=== PATIENT | female | born 1950 | race Caucasian/White ===

== ENCOUNTER 2022-06-28 18:02 | Emergency (ER) | payer MEDICARE, SELFPAY ==
--- NOTE | 2022-06-28 18:04 | ED.BACK ---
HPI - Back Pain/Injury General Chief Complaint: Back Pain/Injury Stated Complaint: fall; lower back pain Time Seen by Provider: 06/28/22 18:19 Source: patient and RN notes reviewed Mode of arrival: ambulatory Limitations: no limitations History of Present Illness HPI Narrative: 71-year-old female with history of traumatic brain injury, cerebral aneurysm, dystonia presents with concern for recent fall causing low back pain. She reports she has been more dizzy lately, she has been removing herself from some of her medications including her blood pressure medication. She reports today she felt dizzy and fell. Reports she was unable to be coordinated enough to get herself off the ground for about 45 minutes. She eventually was able to get herself up off the ground. She did not hit her head. She reports she is having low back pain that she relates to her fall. She denies any weakness in any extremity, loss of bowel or bladder function, perianal anesthesia. She reports depression but denies suicidal ideations. MD elicited complaint: fall Related Data Home Medications Medication Instructions Recorded Confirmed albuterol sulfate 2.5 mg/3 mL 2.5 mg inhalation Q6H PRN 05/24/22 (0.083 %) solution for nebulization shortness of breath or wheezing bupropion HCl 150 mg tablet,12 hr 150 mg PO Q12H 05/24/22 06/28/22 sustained-release clonazepam 0.5 mg tablet 0.25 mg PO HS 05/24/22 06/28/22 ergocalciferol (vitamin D2) 1,250 1,250 mcg PO DAILY 05/24/22 06/28/22 mcg (50,000 unit) capsule escitalopram oxalate 20 mg tablet 20 mg PO DAILY 05/24/22 06/28/22 gabapentin 300 mg capsule 300 mg PO DAILY 05/24/22 06/28/22 venlafaxine 37.5 mg 37.5 mg PO DAILY 05/24/22 06/28/22 capsule,extended release 24 hr Allergies Allergy/AdvReac Type Severity Reaction Status Date / Time amoxicillin AdvReac Severe Hives Verified 06/28/22 18:19 Penicillins AdvReac Severe Hives Verified 06/28/22 18:19 Review of Systems Review of Systems: CONSTITUTIONAL: Denies malaise, chills, sweats, or fever. CARDIOVASCULAR: Denies chest pain, palpitations, or edema. RESPIRATORY: Denies cough or dyspnea. GASTROINTESTINAL: Denies abdominal pain, nausea, vomiting, diarrhea, loss of bowel function GENITOURINARY: Denies dysuria, hematuria, frequency, loss of bladder function. SKIN: Denies rash or itching. MUSCULOSKELETAL: Reports mid low back pain NEUROLOGIC: Denies numbness, weakness, or headache. Reports dystonia, dizziness PSYCH: Reports depression All systems reviewed & are unremarkable except as noted in HPI and below PMFSH Past Medical History Medical History (Updated 06/28/22 @ 18:48 by Karen Daigle NP) H/O vaginal delivery Surgical History Surgical History (Updated 05/24/22 @ 09:52 by Victorino Meneses MD) History of left-sided carotid endarterectomy S/P rotator cuff repair Social History Social History (Updated 05/24/22 @ 11:58 by Victorino Meneses MD) Social History: , 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 Smoking cigarettes per day: 15.0 Years smoked: 60 Smoking pack-years: 45.00 Smoking status: Current every day smoker Tobacco type: cigarettes Additional smoking assessment comments: refuses to quit Alcohol intake: current Alcohol use details: vodka 1 to 2 x a year Substance use: never Lack of Transportation: No Lack of Food: Never True Current Housing: I Have Housing Concerned About Future Housing: YES Education: Master's Degree or Higher Living arrangements: with family Occupation/Education: retired Gender identity (if verbalized by the patient): Female Comments At time of signature, agree with nursing past medical, surgical, social and family history. There is no relevant family history pertinent to the presenting complaint Exam Narrative: GENERAL: Nontoxic appearing and in no acute distress. HEAD: Normocephalic, atraumatic. EYES: PERRLA and EOMI. NECK: Supple. No lymp
[2022-06-28 18:17] VITALS: BP 139/71; PULSE 118; RESP 16; TEMP 36.2; O2SAT 95
--- NOTE | 2022-06-28 19:02 | PC.NURSE ---
0 pt has list of medications that she should be taking but reports that she has not been taking them as prescribed.
== END 2022-06-28 18:54 | disposition home or self-care (01) ==
PROVIDERS: Emergency Provider Nurse Practitioner; PCP Family Medicine
DX: M54.50 Low back pain, unspecified (principal); W19.XXXA Unspecified fall, initial encounter; F17.210 Nicotine dependence, cigarettes, uncomplicated; G24.9 Dystonia, unspecified; Z87.820 Personal history of traumatic brain injury
CPT/HCPCS: 99213; G0463

== ENCOUNTER 2022-08-08 20:49 | Emergency (ER) | payer MEDICARE, SELFPAY ==
[2022-08-08 21:05] VITALS: BP 123/87; PULSE 110; RESP 20; TEMP 36.4; O2SAT 94
--- NOTE | 2022-08-08 21:12 | ECG_ITS ---
Measurements Intervals [place] Rate: 116 P: 76 WA: 129 QRS: 34 QRSD: 88 T: 55 QT: 313 QTc: 435 Interpretive Statements SINUS TACHYCARDIA INCOMPLETE RIGHT BUNDLE BRANCH BLOCK BASELINE ARTIFACT- I, II, III, AVR, AVL, V1 ABNORMAL ECG NO PREVIOUS ECG AVAILABLE FOR COMPARISON Electronically Signed On 08-09-2022 6:25:18 CDT by Silvio Harrison D.O.
== END 2022-08-09 01:20 | disposition left against medical advice (07) ==
LOC: ANHED 08-09 01:02
PROVIDERS: Emergency Provider Preventive Medicine Aerospace Medicine; PCP Family Medicine
DX: R07.9 Chest pain, unspecified (principal)
CPT/HCPCS: 93005; 99199

== ENCOUNTER 2022-10-18 16:36 | Inpatient (IN) | payer MEDICARE, SELFPAY ==
[2022-10-18] VITALS (53 sets, daily range): BP systolic 56–158; BP diastolic 27–122; PULSE 53–76; RESP 12–23; TEMP 34–36.8; O2SAT 67–100; BMI 24.0
--- NOTE | ~2022-10-18 | CT_ITS ---
EXAMINATION: CT cervical spine wo con DATE: 10/18/2022 17:45 INDICATION: Fall. Unresponsive. TECHNIQUE: Computed tomography (CT) of the cervical spine was performed without intravenous contrast. Automated exposure control and iterative reconstruction technique were employed. The dose-length pro duct was 229.74 mGy-cm. COMPARISON: None FINDINGS: Mild motion artifact at the level of C1 and C2. Mild cervicothoracic levocurvature. Straightening of the normal cervical lordosis. Vertebral body heights are normal. No fracture. Moderate to severe disc height loss at C4-C5 and C5-C6, moderate disc height loss at C6-C7 and mild disc height loss at C7-T 1 and the visualized upper thoracic levels. Mild disc bulges resulting in mild central canal stenosis at C4-C5 and C5-C6. Severe uncovertebral osteoarthritis on the right at C4-C5 through C6-C7 and on t he left at C4-C5 and C6-C7 contributing to mild neural foraminal stenosis at these levels. Additional multilevel mild cervical uncovertebral and facet osteoarthritis without significant neural foraminal stenosis. Multinodular goiter. Atherosclerotic calcifications at the right carotid bulb with stentin g at the proximal left internal carotid artery. There is also stenting of the basilar artery. Emphyse ma in the visualized upper lungs. There are also calcified nodules at the right apex and at the super ior segment of the left lower lobe which along with calcified right hilar and mediastinal lymph nodes are consistent with old granulomatous disease. IMPRESSION: 1. Part to severe cervical spondylosis. No acute osseous abnormality. 2. Mild emphysema. Reviewed, dictated and finalized at location A.
--- NOTE | ~2022-10-18 | XR_ITS ---
Portable chest x-ray Comparison: 10/21/2022 Clinical History: Pulmonary edema Findings: NG tube present, unchanged from prior exam, presumably contained within a moderate to large hiatal hernia. [id number] right pleural effusion and probable small left pleural effusion pre sent. Mild to moderate pulmonary edema pattern present. Cardiomediastinal silhouette is stable. Bone s and soft tissues are unremarkable. Impression: [id number] pulmonary edema pattern with bilateral pleural effusions, right greater than left, a nd probable bibasilar atelectasis. NG tube present, presumably contained within a moderate to large hiatal hernia. Reviewed, dictated and finalized at location . Impression: [id number] pulmonary edema pattern with bilateral pleural effusions, righ t greater than left, and probable bibasilar atelectasis. NG tube present, presumably contained within a moderate to large hiatal hernia.
--- NOTE | ~2022-10-18 | XR_ITS ---
EXAMINATION: XR abdomen NG/feed tube rechec DATE: 10/19/2022 20:25 INDICATION: Nasogastric tube recheck TECHNIQUE: A supine view of the abdomen and lower chest was obtained for evaluation of feeding tube placement. COMPARISON: 10/18/2022 FINDINGS: Again seen is a large hiatal hernia with no change in position of the nasogastric tube with tip in pr oximal side port in the intrathoracic portion of the stomach. New right perihilar airspace opacities. Heart size is normal. Calcified nodule at the right costophrenic angle consistent with old granuloma tous disease. IMPRESSION: 1. Large hiatal hernia with unchanged nasogastric tube tip and proximal side port in the intrathoraci c portion of the stomach. 2. New opacities in the right mid and lower lung zones which could represent pneumonia, aspiration or asymmetric pulmonary edema. Reviewed, dictated and finalized at location A. IMPRESSION: 1. Large hiatal hernia with unchanged nasogastric tube tip and proximal side po rt in the intrathoracic portion of the stomach. 2. New opacities in the right mid and lower lung zones which could represent pn eumonia, aspiration or asymmetric pulmonary edema.
--- NOTE | ~2022-10-18 | XR_ITS ---
CORRECTED REPORT exam description change [facility] [place] [place]19/2022 This report was recreated on 10/19/2022. Original report was EXAMINATION: XR abdomen NG/feed tube insert DATE: 10/18/2022 21:19 INDICATION: Nasogastric tube placement TECHNIQUE: A supine view of the abdomen and lower chest was obtained for evaluation of feeding tube placement. COMPARISON: None. FINDINGS: Large hiatal hernia with nasogastric tube tip in proximal side port within the intrathoracic portion of the stomach. A few scattered bilateral calcified pulmonary nodules and calcite mediastinal lymph nodes consistent with old granulomatous disease. Heart size is normal. IMPRESSION: 1. Large hiatal hernia with nasogastric tube tip in proximal side port in the intrathoracic portion of the stomach. Reviewed, dictated and finalized at location A. MTDD IMPRESSION: 1. Large hiatal hernia with nasogastric tube tip in proximal side port in the i ntrathoracic portion of the stomach.
--- NOTE | ~2022-10-18 | XR_ITS ---
EXAMINATION: XR chest 1V portable DATE: 10/19/2022 20:24 INDICATION: Dyspnea TECHNIQUE: frontal view of the chest was obtained. COMPARISON: Chest radiograph dated 10/18/2022 FINDINGS: Mild hyperexpansion of lungs consistent with emphysema which is better appreciated on prior CT. New a irspace opacities in the right mid and lower lung zones. No pleural effusion or pneumothorax. A few b ilateral calcified pulmonary nodules consistent with old granulomatous disease. Heart size is normal. Large hiatal hernia . Nasogastric tube with tip and proximal side port within the intrathoracic port ion of the stomach. IMPRESSION: 1. Emphysema with new airspace opacities in the right mid and lower lung zones which could represent pneumonia, aspiration or asymmetric pulmonary edema. 2. Large sliding-type hiatal hernia with nasogastric tube tip and proximal side port in the intrathor acic portion of the stomach. Reviewed, dictated and finalized at location A. IMPRESSION: 1. Emphysema with new airspace opacities in the right mid and lower lung zones which could represent pneumonia, aspiration or asymmetric pulmonary edema. 2. Large sliding-type hiatal hernia with nasogastric tube tip and proximal side port in the intrathoracic portion of the stomach.
--- NOTE | ~2022-10-18 | XR_ITS ---
EXAMINATION: XR chest 1V portable DATE: 10/18/2022 17:23 INDICATION: Altered mental status. TECHNIQUE: frontal view of the chest was obtained. COMPARISON: None FINDINGS: Mild elevation the left hemidiaphragm. Calcified nodules at the right costophrenic angle and bilatera l apices along with calcified mediastinal lymph nodes consistent with old granulomatous disease. No o ther airspace opacities, pulmonary edema, pleural effusion or pneumothorax. Borderline heart size acc ounting for AP technique. Large retrocardiac mass projecting over the left side of the thoracic spine and right side of the heart with location and orientation suggesting a moderate-sized hiatal hernia. IMPRESSION: 1. Elevation the left hemidiaphragm. No acute cardiopulmonary disease. 2. Borderline heart size. 3. Retrocardiac masslike opacity most likely moderate-sized hiatal hernia. Aortic aneurysm or other m ediastinal mass considered less likely. If prior outside imaging is unavailable for comparison could consider follow-up chest CT for further evaluation. Reviewed, dictated and finalized at location A. IMPRESSION: 1. Elevation the left hemidiaphragm. No acute cardiopulmonary disease. 2. Borderline heart size. 3. Retrocardiac masslike opacity most likely moderate-sized hiatal hernia. Aort ic aneurysm or other mediastinal mass considered less likely. If prior outside imaging is unavailable for comparison could consider follow-up chest CT for fur ther evaluation.
--- NOTE | ~2022-10-18 | XR_ITS ---
XR abdomen NG/feed tube insert DATE: 10/20/2022 11:13 INDICATION: NG tube Insertion TECHNIQUE: Portable AP views COMPARISON: 10/19/2022 portal KUB for NG tube position FINDINGS: The NG tube makes a coil in the mouth. The NG tube distal tip is situated within the large hiatal hernia. IMPRESSION: NG tube in hiatal hernia; tube is coiled in the mouth. Reviewed, dictated and finalized at Location A. Reviewed, dictated and finalized at location A.
--- NOTE | ~2022-10-18 | CT_ITS ---
EXAMINATION: CTA chest PE protocol DATE: 10/18/2022 19:46 INDICATION: Pulmonary embolism TECHNIQUE: Computed tomography (CT) pulmonary angiogram of the chest was performed with 100 mL Omnipa que-350 intravenous contrast. Additional 3D reconstructions utilizing coronal maximum intensity proje ction (MIP) were performed. Automated exposure control and iterative reconstruction technique were em ployed. The dose-length product was 399.22 mGy-cm. COMPARISON: None FINDINGS: Excellent contrast opacification of the pulmonary arteries. There is mild streak artifact from dense contrast in the superior vena cava and right atrium. Mild scattered respiratory motion which does not significantly limit evaluation. No pulmonary embolism. Enlargement of the central pulmonary arteries consistent with pulmonary arterial hypertension. Mild emphysema. Multiple scattered calcified pulmon maryse nodules along with calcified mediastinal lymph nodes and a few splenic calcifications, all consis tent with old granulomatous disease. There is compressive atelectasis at the medial aspect of both lo wer lobes along side a large sliding-type hiatal hernia. There are some residual versus urethral flui d in the mid to distal esophagus. No pneumonia, pulmonary edema, pleural effusion or pneumothorax. Minh rderline heart size with mild left ventricular enlargement. Small amount scattered atherosclerotic co ronary artery calcification. No pericardial effusion. Thoracic aorta is normal in caliber. There are few diverticula at the visualized colon without adjacent from trace stranding to suggest diverticulit is. Moderate thoracic spondylosis. IMPRESSION: 1. Enlargement of the central pulmonary arteries consistent with pulmonary arterial hypertension. No pulmonary embolism. 2. Borderline heart size with mild left ventricular enlargement. 3. Large sliding-type hiatal hernia with some residual versus refluxed fluid in the more proximal eso phagus. Reviewed, dictated and finalized at location A. IMPRESSION: 1. Enlargement of the central pulmonary arteries consistent with pulmonary jeanine rial hypertension. No pulmonary embolism. 2. Borderline heart size with mild left ventricular enlargement. 3. Large sliding-type hiatal hernia with some residual versus refluxed fluid in the more proximal esophagus.
--- NOTE | ~2022-10-18 | XR_ITS ---
EXAMINATION: XR abdomen NG/feed tube rechec DATE: 10/19/2022 22:48 INDICATION: Nasogastric tube repositioning. TECHNIQUE: A supine view of the abdomen and lower chest was obtained for evaluation of feeding tube placement. COMPARISON: 10/27/2022 at 8:18 PM FINDINGS: The nasogastric tube has been advanced but remains positioned within the intrathoracic portion of the stomach with a large hiatal hernia. Persistent opacities in the right mid and lower lung zone. Calci fied nodule at the right lung base and in the left upper lung zone consistent with old granulomatous disease. Heart size is normal. IMPRESSION: 1. Large hiatal hernia with advancement of the nasogastric tube but which remains within the intratho racic portion of the stomach. 2. Opacities in the right mid and lower lung zone which could represent pneumonia, aspiration or asym metric pulmonary edema. Reviewed, dictated and finalized at location A. IMPRESSION: 1. Large hiatal hernia with advancement of the nasogastric tube but which remai ns within the intrathoracic portion of the stomach. 2. Opacities in the right mid and lower lung zone which could represent pneumon ia, aspiration or asymmetric pulmonary edema.
--- NOTE | ~2022-10-18 | XR_ITS ---
XR chest 1V portable DATE: 10/20/2022 07:53 INDICATION: Dyspnea, pulmonary infiltrates TECHNIQUE: Portable AP chest on 11/06/2022 at 0732 hours COMPARISON: 10/19/2022 portable AP chest FINDINGS: Again noted is a nasogastric tube in a large hiatal hernia. Heart size is borderline. Is aortic calcification and mild tortuosity. There is patchy infiltrate throughout much of the right lung, most prominently at the right lung base where there may be some additional atelectasis. The right upper lung infiltrate is moderately improv ed since 10/19/2022. The left lung appears clear. Bilateral calcified pulmonary granulomas. Small pleural effusions are not excluded. Diffuse osteopenia. IMPRESSION: Extensive right-sided pulmonary infiltrate and probable right basilar atelectasis; mild i mprovement of right upper lung infiltrates since 10/19/2022 Nasogastric tube within large hiatal hernia Reviewed, dictated and finalized at location A. IMPRESSION: Extensive right-sided pulmonary infiltrate and probable right basil ar atelectasis; mild improvement of right upper lung infiltrates since 10/19/2022 Nasogastric tube within large hiatal hernia
--- NOTE | ~2022-10-18 | XR_ITS ---
XR chest 1V portable DATE: 10/21/2022 05:29 INDICATION: Dyspnea. Infiltrates. TECHNIQUE: Portable upright AP view on 10/21/2022 at 0524 hours COMPARISON: 10/20/2022 portable AP chest FINDINGS: Borderline heart size. Aortic arch calcification. There is pulmonary vascular congestion and redistribution. The pulmonary vasculature is increased in prominence since 10/20/2022, consistent with congestive heart failure. There is prominent patchy infiltrate and/atelectasis in the right lower atelectasis at left lower rita g. Small right pleural effusion is suggested. Diffuse osteopenia. NG tube in large hiatal hernia within the thorax. IMPRESSION: Congestive heart failure, new over increased since 10/20/2022 Increased infiltrate or atelectasis in the right lower lung, mild infiltrate or atelectasis in the le ft lower lung NG tube in large hiatal hernia Reviewed, dictated and finalized at location A. IMPRESSION: Congestive heart failure, new over increased since 10/20/2022 Increased infiltrate or atelectasis in the right lower lung, mild infiltrate or atelectasis in the left lower lung NG tube in large hiatal hernia
--- NOTE | ~2022-10-18 | US_ITS ---
Renal-Bladder ultrasound Clinical History: Acute kidney injury Technique: Real-time sonographic imaging of the kidneys and urinary bladder was performed. Findings: The right kidney measures 9.6 cm in length and the left kidney measures 9.4 cm. There is no hydronephrosis or renal calculus identified. Renal cortical echogenicity is within normal limits. No renal mass lesion is identified. The urinary bladder is partially distended, with Myles catheter balloon present. Impression: Unremarkable ultrasound of the kidneys and urinary bladder. Reviewed, dictated and finalized at location M. Impression: Unremarkable ultrasound of the kidneys and urinary bladder.
--- NOTE | ~2022-10-18 | CT_ITS ---
EXAMINATION: CT brain wo con DATE: 10/18/2022 17:45 INDICATION: Unresponsive TECHNIQUE: Computed tomography (CT) of the head was performed without intravenous contrast. Sagittal and coronal reconstructions were performed. The mA was adjusted according to patient size. Iterative reconstruction technique was employed. The dose-length product was 681.00 mGy-cm. COMPARISON: None FINDINGS: Prominent metallic streak artifact centered in the suprasellar region likely related to aneurysm coil s at the expected location of the tip of the basilar artery. There is stenting in the more proximal b asilar artery. Small old lacunar infarct at the right thalamus. Additional small infarct at the left cerebellar hemisphere. No acute intracranial hemorrhage, acute infarction or abnormal extra axial flu id collection. Symmetric prominence of the sulci consistent with mild age-appropriate diffuse cerebra l volume loss. Ventricles are normal and symmetric. No mass/mass effect. The orbits, paranasal sinuse s and mastoid air cells are normal. IMPRESSION: 1. No acute intracranial process. 2. 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 3. 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 Correlate with neurosurgical history. Reviewed, dictated and finalized at location A. IMPRESSION: 1. No acute intracranial process. 2. 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 3. Postoperative changes of prior stenting of the basilar artery and likely ane urysm coiling at the basilar tip. Correlate with neurosurgical history.
--- NOTE | 2022-10-18 16:47 | ECG_ITS ---
Measurements Intervals [place] Rate: 74 P: -53 MO: 116 QRS: 31 QRSD: 94 T: 49 QT: 403 QTc: 449 Interpretive Statements ECTOPIC ATRIAL RHYTHM WITH SHORT MO INTERVAL WITH FREQUENT SUPRAVENTRICULAR PREMATURE COMPLEXES IN A BIGEMINAL PATTERN POSSIBLE RIGHT VENTRICULAR CONDUCTION DELAY [RSR (QR) IN V1/V2] NONSPECIFIC T-WAVE ABNORMALITY ABNORMAL RHYTHM ECG COMPARED TO ECG 08/08/2022 21:18:38 ECTOPIC ATRIAL RHYTHM NOW PRESENT Electronically Signed On 10-19-2022 13:35:43 CDT by Ofe Solo M.D.
--- NOTE | 2022-10-18 16:49 | PC.NURSE ---
Son arrives on scene. States that pt is a DNR.
--- NOTE | 2022-10-18 16:56 | PC.NURSE ---
Due to low BPs RN started the bag of NSS that had been stopped upon arrival with 100 mls in. RN started the IV at a bolus.
[2022-10-18 17:02] LABS: Basophils Absolute Auto 0.1 K/mm3 (0.0-0.1); Basophils Percent Auto 0.6 % (0.2-1.2); Eosinophils Absolute Auto 0.2 K/mm3 (0-0.3); Eosinophils Percent Auto 1.7 % (0-4.4); Hematocrit 33.4 % (37.0-47.0); Hemoglobin 9.9 g/dL (12.0-15.0); Immature Granulocyte Absolute 0.06 K/mm3 (0.00-0.031); Immature Granulocyte Percent A 0.7 % (0-0.5); Lymphocytes Absolute Auto 1.46 K/mm3 (0.9-3.2); Lymphocytes Percent Auto 16.4 % (18.3-44.2); Mean Corpuscular HGB Conc 29.6 g/dl (32-36); Mean Corpuscular Hemoglobin 27.1 pg (26-34); Mean Corpuscular Volume 91.5 fl (80-100); Mean Platelet Volume 9.7 fl (7.4-10.4); Monocytes Absolute Auto 0.7 K/mm3 (0.1-0.6); Monocytes Percent Auto 7.4 % (2.6-8.5); Neutrophils Absolute Auto 6.5 K/mm3 (1.3-6.7); Neutrophils Percent Auto 73.2 % (45.5-73.1); Platelet Count Result 226 k/mm3 (150-375); Red Blood Count 3.65 M/mm3 (4.2-5.4); Red Cell Distribution Width 16.7 % (11.5-14.5); White Blood Count 8.9 K/mm3 (4.5-10.0)
[2022-10-18 17:08] LABS: Glucose Point of Care 161 mg/dl (65-105)
[2022-10-18 17:09] LABS: Alanine Aminotransferase 15 U/L (6-35); Albumin Level 3.6 g/dL (3.5-5.1); Alkaline Phosphatase 78 U/L (38-126); Anion Gap 8 mmol/L (8-16); Aspartate Amino Transferase 26 U/L (14-36); Bilirubin,Total 0.2 mg/dL (0.2-1.3); Blood Urea Nitrogen 16 mg/dL (7-17); Calcium 8.1 mg/dL (8.4-10.2); Carbon Dioxide 21 mmol/L (22-30); Chloride 111 mmol/L (98-107); Estimated Glomerular Filt Rate 54; Glucose 135 mg/dL (65-110); Potassium 3.9 mmol/L (3.4-5.0); Sodium 140 mmol/L (137-145)
[2022-10-18 17:10] LABS: Ethanol < 10 mg/dL (<10)
--- NOTE | 2022-10-18 17:10 | PC.NURSE ---
Another bag of NSS was started into pt's right iv. Family states that pt has not been taking any of her medications for over a year.
[2022-10-18 17:13] LABS: Prothrombin Time 13.5 Seconds (11.1-14.7)
[2022-10-18] MEDS: NOREPINEPHRINE 8 MG/D5W 250 ML 8 MG/250 ML BAG 9.38 MG IV CONT (17:22)
[2022-10-18] MEDS: SODIUM CHLORIDE 0.9% IV 1,000 ML 999 ML (17:22)
[2022-10-18] MEDS: SODIUM CHLORIDE 0.9% IV 1,000 ML 999 ML IV CONT (17:23)
--- NOTE | 2022-10-18 17:23 | ED.GENADULT ---
HPI - General Adult General Chief complaint: Altered Mental Status Stated complaint: unresponsive Time Seen by Provider: 10/18/22 16:38 History of Present Illness HPI narrative: Patient is 72 years old white female came from home with unresponsiveness. Patient last time was seen 45 minutes before found unresponsive, was found on the garage floor unresponsive for unknown duration. Agonal breathing. Patient had a lot of alcohol today, was sad about her dog who today. Patient does not take any medications and for 1 years. DNR, DNI, severe cataract, did not see a doctor yet. Walks without a walker, holding on furniture during walking. History of CVA, prediabetes, Tobacco dependent, history of possible early dementia. History was taken from the patient's son who is at the bedside. Related Data Home Medications Medication Instructions Recorded Confirmed albuterol sulfate 2.5 mg/3 mL 2.5 mg inhalation Q6H PRN 05/24/22 06/28/22 (0.083 %) solution for nebulization shortness of breath or wheezing bupropion HCl 150 mg tablet,12 hr 150 mg PO Q12H 05/24/22 06/28/22 sustained-release clonazepam 0.5 mg tablet 0.25 mg PO HS 05/24/22 06/28/22 ergocalciferol (vitamin D2) 1,250 1,250 mcg PO DAILY 05/24/22 06/28/22 mcg (50,000 unit) capsule escitalopram oxalate 20 mg tablet 20 mg PO DAILY 05/24/22 06/28/22 gabapentin 300 mg capsule 300 mg PO DAILY 05/24/22 06/28/22 venlafaxine 37.5 mg 37.5 mg PO DAILY 05/24/22 06/28/22 capsule,extended release 24 hr Allergies Allergy/AdvReac Type Severity Reaction Status Date / Time amoxicillin AdvReac Severe Hives Verified 08/08/22 20:51 Penicillins AdvReac Severe Hives Verified 08/08/22 20:51 Review of Systems Review of Systems: All systems reviewed & are unremarkable except as noted in HPI and below PMFSH Past Medical History Medical History H/O vaginal delivery Surgical History Surgical History History of left-sided carotid endarterectomy S/P rotator cuff repair Social History Social History Social History: , 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 Smoking cigarettes per day: 15.0 Years smoked: 60 Smoking pack-years: 45.00 Smoking status: Current every day smoker Tobacco type: cigarettes Additional smoking assessment comments: refuses to quit Alcohol intake: current Alcohol use details: vodka 1 to 2 x a year Substance use: never Lack of Transportation: No Lack of Food: Never True Current Housing: I Have Housing Concerned About Future Housing: YES Education: Master's Degree or Higher Living arrangements: with family Occupation/Education: retired Gender identity (if verbalized by the patient): Female Exam Narrative: General appearance: Well-developed, agonal breathing, responding to painful stimulation Skin: Pale Head: Normocephalic, nontraumatic Eyes: 2 mm pupils bilaterally not reactive to light ENT: Oropharynx normal, ears normal, nose normal Neck: Supple, nontender Chest and respiratory: Airway patent, mild diminution of air entry bilaterally Heart: Regular rate/rhythm Abdomen: Soft, , no organomegaly, quiet bowel sounds Vascular: Normal peripheral pulses, normal capillary refill. Responsive to painful stimulation only by pushing hands Course Consultations Consultation #1: Dr. Burgos Date: 10/18/22 Time: 18:54 Vital Signs Vital signs: Vital Signs Temperature 36.8 C 10/18/22 16:35 Pulse Rate 76 10/18/22 16:35 Respiratory Rate 16 10/18/22 16:35 Pu
[2022-10-18 17:24] LABS: Burr Cells 1+ (NORMAL); Hypochromasia 1+ (NORMAL); Platelet Estimate Adequate (Adequate)
[2022-10-18 17:25] LABS: Schistocytes None Seen (NORMAL)
--- NOTE | 2022-10-18 17:29 | PC.NURSE ---
ERP orders for a c-collar due to unknown nature of pt. Once the c-collar was applied pt's SPO2 started to decrease so RN applied 15L of O2 via NRB to raise SPO2 in the high 90s. A nasal trumpet was also applied. Pt's work of breathing eased as well.
--- NOTE | 2022-10-18 17:43 | PCRCNOTE ---
Arrived to draw ABG; pt. was not available. Pt. was in CT.
[2022-10-18 17:50] LABS: CRP 0.6 mg/dL (<1.0)
--- NOTE | 2022-10-18 17:53 | PC.NURSE ---
return from ct. bp 94/44. p 57. resp at bedside for abgs
[2022-10-18 18:02] LABS: Alveolar/Arterial O2 Gradient 188.3 mmHg; Base Excess ABG -9.2 mEq/l (+/-2.0); Fractional Inspired Oxygen 100 %; HCO3 ABG 18.7 mEq/l (22.0-26.0); Oxygen Content ABG 15.8 %vol (16.0-22.0); Oxygen Saturation ABG 99.8 % (95.0-100.0); Oxyhemoglobin 97.8 % THb (90.0-100.0); PCO2 ABG 50.1 mmHg (35.0-45.0); PO2 ABG 474.6 mmHg (80.0-100.0); PO2 FiO2 Ratio Arterial Blood 4.75 %; Total Hemoglobin 10.5 g/dL (12.0-18.0)
[2022-10-18 18:05] LABS: Modified Allen's Test Pass; Site Drawn RIGHT RADIAL; pH ABG 7.191 (7.350-7.450)
[2022-10-18 18:06] LABS: Device NON-REBREATHER MASK
--- NOTE | 2022-10-18 18:27 | PC.NURSE ---
RN assists ERP while he performs a central line into pt's right groin.
[2022-10-18] MEDS: LEVALBUTEROL NEB 1.25 MG/3 ML INHALATION (19:01)
[2022-10-18] MEDS: IPRATROPIUM BR 0.02% INH SOLN 0.5 MG/2.5 ML VIAL INHALATION (19:01)
[2022-10-18] MEDS: SODIUM BICARBONATE 8.4% 50 MEQ/50 ML SYRINGE IV PUSH ×2 (19:04→19:06)
[2022-10-18 19:07] LABS: Lactic Acid Reflex 1.6 mmol/L (0.7-2.0)
[2022-10-18] MEDS: SODIUM BICARBONATE 8.4% 100 MEQ in DEXTROSE 5% 1,000 ML 1,000 ML 50 MEQ IV CONT (19:08)
[2022-10-18 19:12] LABS: CRP 0.5 mg/dL (<1.0)
[2022-10-18] MEDS: methylPREDNISolone SOD SUCC 125 MG VIAL IV PUSH (19:15)
--- NOTE | 2022-10-18 19:21 | PC.NURSE ---
Norepinephrine titrated per QASIM Baez
[2022-10-18 19:58] LABS: Acetaminophen < 10 ug/mL (10-30)
[2022-10-18] MEDS: SODIUM CHLORIDE 0.9% IV 1,000 ML 200 ML IV CONT (20:25)
--- NOTE | 2022-10-18 20:28 | PC.NURSE ---
Pt received sepsis dose of fluids via floor stock pulls and previous RN did not document against the sepsis order in JUL. Pt did receive fluids.
--- NOTE | 2022-10-18 20:35 | ADMGEN ---
This patient, Christopher Chambers, was admitted to Intensive Care Unit-3. Patient/family oriented to hospital policies and general routines including ID bracelet, bed and alarms, visiting hours, pain management, procedures, bathroom and other care routines, personal items, smoking policy, room service/diet, and visiting hours. Information on how to activate the Rapid Response Team has been discussed. Patient/Family are encouraged to report perceived risks to care and to ask questions if they do not understand what they are told or what they should do.
[2022-10-18 20:41] LABS: Reflex Lactic Acid Yes or No Add Lactic
[2022-10-18 21:24] LABS: Lactic Acid 1.2 mmol/L (0.7-2.0)
[2022-10-18] MEDS: levoFLOXacin 750 MG/D5W 150 ML 750 MG/150 ML BAG 100 MG IVPB (21:58)
[2022-10-18] MEDS: AZTREONAM 2 GM in SODIUM CHLORIDE 0.9% IV 100 ML 200 ML IVPB (22:14)
[2022-10-18 23:48] LABS: Glucose Point of Care 394 mg/dl (65-105)
[2022-10-18] MEDS: VASOPRESSIN INJ 100 UNITS in DEXTROSE 5% 95 ML IV CONT (23:48)
--- NOTE | 2022-10-18 23:55 | PM.IMHP ---
H&P: HPI History of Present Illness Date/Time: 10/18/221799 Chief Complaint: Altered mental status Narrative: this is a 72-year-old female patient who resides with her son. The patient was brought to the emergency room due to unresponsiveness. The son is at the bedside any tells me that the patient has multiple diagnosis but has not been taking her medication. The patient was found to be unresponsive 45 minutes prior to coming to the emergency room. They found her on the ground floor. She had agonal breathing. The patient is a do not resuscitate. The son stated that the patient has not taken any of her medications for 1 year. She does have a history of hypertension and diabetes. The patient typically walks around with a walker or holding on to furniture on a typical day. However today she was not doing this. She does have a history of dementia as well. The patient was placed on a non-rebreather. Patient's blood pressure was noted to be 66/41. The ER provider had a discussion with family they decided that she should get a central line in be placed on vasopressors. A central line was placed per ED provider. Her daughter in-law stated that they found an empty bottle of Norvasc and Lyrica near her. They were not sure how many she had taken. Abdominal x-ray was read as large hiatal hernia with NG tube in place. Chest CTA was read as the following. Enlargement of the central pulmonary arteries consistent with pulmonary arterial hypertension. No pulmonary embolism. 2. Borderline heart size with mild left ventricular enlargement. 3. Large sliding-type hiatal hernia with some residual versus refluxed fluid in the more proximal esophagus. the patient was in a cervical collar in her CT spine was read as. Part to severe cervical spondylosis. No acute osseous abnormality. 2. Mild emphysema. head CT was read as. No acute intracranial process. 2. 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 3. Postoperative changes of prior stenting of the basilar artery and likely aneurysm coiling at the basilar tip. Correlate with neurosurgical history chest x-ray was read as1. Elevation the left hemidiaphragm. No acute cardiopulmonary disease. 2. Borderline heart size. 3. Retrocardiac masslike opacity most likely moderate-sized hiatal hernia. Aortic aneurysm or other mediastinal mass considered less likely. If prior outside imaging is unavailable for comparison could consider follow-up chest CT for further evaluation. the patient was given a bolus of normal saline as per sepsis protocol. She was started on Levaquin, vancomycin, and Solu-Medrol. She was also given nebulizer treatments. H&H is 9.9 and 33.4. ABGs pH 7.191, CO2 50.1 PO2 474.6. Accu-Cheks 161 and 394. Her Tylenol level was less than 10 and alcohol level less than 10. The patient is being admitted to inpatient status to ICU in the quality control expert has been consulted already. The date of service is 10/18/2022. [facility] Past Medical History Medical History Adjustment reaction with anxiety and depression Cataract COPD (chronic obstructive pulmonary disease) DM2 (diabetes mellitus, type 2) H/O vaginal delivery History of TIA (transient ischemic attack) Hypertension Restless leg syndrome, uncontrolled Surgical History Surgical History History of left-sided carotid endarterectomy S/P rotator cuff repair Social History Social History (Updated 10/19/22 @ 00:05 by Juliette Ellis NP) Social History: she is S2 children. She is a retired Nurse. Code status DNR Smoking packs per day: 1 Smoking cigarettes per day: 20.0 Years smoked: 57 Smoking pack-years: 57.00 Smoking status: Current every day smoker Tobacco type: cigarettes Additional smoking assessment comments: refuses to quit Alcohol intake: current Alcohol use details: vodka 1 to 2 x a year Substance use: never Subs
[2022-10-19] VITALS (57 sets, daily range): BP systolic 73–139; BP diastolic 38–117; PULSE 53–84; RESP 13–21; TEMP 34.6–37.1; O2SAT 89–100; BMI 25.9
[2022-10-19] MEDS: INSULIN ASPART (*BKC) 100 UNITS/ML SUB-Q ×2 (00:21→04:14)
[2022-10-19] MEDS: methylPREDNISolone SOD SUCC 125 MG VIAL 60 MG IV PUSH ×2 (00:23→05:47)
[2022-10-19] MEDS: NOREPINEPHRINE 8 MG/D5W 250 ML 8 MG/250 ML BAG 37.5 MG IV CONT (00:33)
[2022-10-19 00:49] LABS: Alanine Aminotransferase 40 U/L (6-35); Albumin Level 3.1 g/dL (3.5-5.1); Alkaline Phosphatase 74 U/L (38-126); Anion Gap 7 mmol/L (8-16); Aspartate Amino Transferase 74 U/L (14-36); Bilirubin,Total 0.1 mg/dL (0.2-1.3); Blood Urea Nitrogen 18 mg/dL (7-17); Calcium 6.9 mg/dL (8.4-10.2); Carbon Dioxide 23 mmol/L (22-30); Chloride 104 mmol/L (98-107); Creatine Kinase 57 U/L (30-135); Estimated CRCL calculation 31 ml/min; Estimated Glomerular Filt Rate 40; Glucose 352 mg/dL (65-110); Potassium 4.4 mmol/L (3.4-5.0); Sodium 134 mmol/L (137-145)
[2022-10-19 01:56] LABS: Magnesium 1.8 mg/dL (1.6-2.3); Phosphorus 6.1 mg/dL (2.5-4.5)
[2022-10-19] MEDS: CALCIUM GLUC 2,000 MG/NS 100ML 2,000 MG/100 ML BAG 100 MG IVPB ×3 (02:07→07:23)
[2022-10-19] MEDS: IPRATROPIUM BR 0.02% INH SOLN 0.5 MG/2.5 ML VIAL INHALATION ×4 (02:10→19:01)
[2022-10-19] MEDS: LEVALBUTEROL NEB 1.25 MG/3 ML INHALATION ×4 (02:10→19:01)
[2022-10-19] MEDS: MAGNESIUM SULF 2 GM/WATER 50ML 2 GM/50 ML BAG IVPB (02:29)
[2022-10-19 02:30] LABS: Hematocrit 33.5 % (37.0-47.0); Hemoglobin 9.6 g/dL (12.0-15.0)
[2022-10-19] MEDS: EPINEPHrine INJ 1 MG in DEXTROSE 5% IN WATER 250 ML 15.06 MG IV CONT (02:31)
[2022-10-19 03:04] LABS: Glucose Point of Care 358 mg/dl (65-105)
[2022-10-19 04:34] LABS: Glucose Point of Care 358 mg/dl (65-105)
[2022-10-19 04:42] LABS: Hematocrit 32.8 % (37.0-47.0); Hemoglobin 9.6 g/dL (12.0-15.0)
[2022-10-19 04:47] LABS: Lactic Acid Reflex 3.7 mmol/L (0.7-2.0)
[2022-10-19 04:48] LABS: Estimated CRCL calculation 27 ml/min; Estimated Glomerular Filt Rate 34
[2022-10-19 04:59] LABS: Amphetamine Screen Urine Negative (Negative); Appearance Urine Cloudy (Clear); Bacteria Urine None Seen /hpf; Barbiturate Screen Urine Negative (Negative); Benzodiazepines Screen Urine Negative (Negative); Bilirubin Urine Negative (Negative); Blood Urine 3+ (Negative); Cannabinoid Screen Urine Negative (Negative); Cocaine Screen Urine Negative (Negative); Color Urine Yellow (Yellow); Glucose Urine UA Trace mg/dL (Negative); Hyaline Casts Urine Present /lpf; Ketones Urine Negative (Negative); Leukocyte Esterase Ur 1+ LEU/UL (NEGATIVE); Methadone Screen Urine Negative (Negative); Mucus Urine Present /lpf; Nitrate Urine Negative (Negative); Opiate Screen Urine Negative (Negative); Phencyclidine Screen Urine Negative (Negative); Protein Urine 2+ mg/dL (Negative); RBC Urine >100 /hpf (0-2); Squamous Epithelial Cell Urine Few /hpf (Few); Urobilinogen Urine 0.2 mg/dL (<2.0); WBC Urine 21-50 /hpf (0-3)
[2022-10-19 05:00] LABS: Hemoglobin A1C 6.1 % (<5.7); Specific Grav Ur 1.077 (1.001-1.035)
[2022-10-19 05:01] LABS: Add Urine Microscopic? YES
[2022-10-19 05:23] LABS: Alanine Aminotransferase 47 U/L (6-35); Albumin Level 3.1 g/dL (3.5-5.1); Alkaline Phosphatase 80 U/L (38-126); Anion Gap 10 mmol/L (8-16); Aspartate Amino Transferase 79 U/L (14-36); Bilirubin,Total 0.2 mg/dL (0.2-1.3); Blood Urea Nitrogen 19 mg/dL (7-17); Calcium 7.8 mg/dL (8.4-10.2); Carbon Dioxide 22 mmol/L (22-30); Chloride 101 mmol/L (98-107); Estimated CRCL calculation 27 ml/min; Estimated Glomerular Filt Rate 34; Glucose 320 mg/dL (65-110); Potassium 4.3 mmol/L (3.4-5.0); Sodium 133 mmol/L (137-145)
[2022-10-19] MEDS: NOREPINEPHRINE 8 MG/D5W 250 ML 8 MG/250 ML BAG 56.25 MG IV CONT (05:40)
[2022-10-19] MEDS: AZTREONAM 2 GM in SODIUM CHLORIDE 0.9% IV 100 ML 200 ML IVPB ×2 (05:47→17:47)
[2022-10-19] MEDS: EPINEPHrine INJ 1 MG in DEXTROSE 5% IN WATER 250 ML 105.42 MG IV CONT (06:45)
[2022-10-19] MEDS: SODIUM BICARBONATE 8.4% 100 MEQ in DEXTROSE 5% 1,000 ML 1,000 ML IV CONT (07:23)
--- NOTE | 2022-10-19 08:01 | WPDCNINT ---
Assessment and Plan Assessment and plan (1) Shock: Code(s): R57.9 - Shock, unspecified Status: Acute Assessment and Plan: Patient with shock most likely related to amlodipine overdose -patient has been adequately fluid-resuscitated -currently on maximum dose of vasopressin and Levophed infusions, patient also on epinephrine infusion -maintain map > 65 mmHg end organ perfusion -patient started on stress dose steroids -poison control was notified, recommended high-dose insulin and dextrose therapy -will start high-dose insulin and dextrose treatment, with Accu-Cheks every 30 minutes -patient has been started on history of DM, levofloxacin and vancomycin -CRP within normal -lactic acid is elevated (2) Medication overdose: Code(s): T50.901A - Poisoning by unspecified drugs, medicaments and biological substances, accidental (unintentional), initial encounter Status: Acute (3) Suicidal behavior: Code(s): R45.89 - Other symptoms and signs involving emotional state Status: Acute Assessment and Plan: According the patient's daughter in-law, likely suicide behavior as she took unknown amount of amlodipine and Lyrica as the [id number] found the bottles around the patient at home -continue suicide precautions -bedside sitter in room -will have care coordination and crisis management evaluate the patient once she is medically stable for placement in a psychiatric unit (4) Encephalopathy: Code(s): G93.40 - Encephalopathy, unspecified Status: Acute Assessment and Plan: Encephalopathy can be multifactorial most likely medication overdose with amlodipine and Lyrica -patient has been adequately fluid-resuscitated, -check ammonia level -continue maintenance IV fluids -continue to monitor mental status (5) DM2 (diabetes mellitus, type 2): Code(s): E11.9 - Type 2 diabetes mellitus without complications Status: Acute Assessment and Plan: Continue Accu-Cheks and sliding scale insulin (6) COPD (chronic obstructive pulmonary disease): Code(s): J44.9 - Chronic obstructive pulmonary disease, unspecified Status: Acute Assessment and Plan: Will place patient on Vapotherm -continue bronchodilators (7) Adjustment reaction with anxiety and depression: Code(s): F43.23 - Adjustment disorder with mixed anxiety and depressed mood Status: Acute Assessment and Plan: Patient with history of anxiety and depression -patient has been depressed because she did lose her dog on the day of admission (8) Acute kidney injury: Code(s): N17.9 - Acute kidney failure, unspecified Status: Acute Assessment and Plan: Patient with acute kidney injury likely related to severe shock secondary to hypotension -patient has been adequately fluid-resuscitated -continue maintenance IV fluids -currently on 3 pressors -patient was not fluid responsive to NICOM -will continue to monitor renal function, electrolytes and urine output Plan DVT prophylaxis: Lovenox SQ Stress ulcer prophylaxis: Protonix Nutrition: NPO Code Status: DNR/DNI Critical Care Time Spent: 55 minutes Due to a high probability of clinically significant, life threatening deterioration, the patient required my highest level of preparedness to intervene emergently and I personally spent this critical care time directly and personally managing the patient. This critical care time included obtaining a history; examining the patient; pulse oximetry; ordering and review of studies; arranging urgent treatment with development of a management plan; evaluation of patient's response to treatment; frequent reassessment; and discussions with other providers. It was exclusive of separately billable procedures and treating other patients and teaching time. Please see Assessment and Plan section and the rest of the note for further information on patient assessment and treatment Thi
[2022-10-19 08:12] LABS: Glucose Point of Care 381 mg/dl (65-105)
[2022-10-19] MEDS: EPINEPHrine INJ 4 MG in DEXTROSE 5% IN WATER 250 ML 19.05 MG IV CONT (08:17)
[2022-10-19] MEDS: HYDROCORTISONE SODIUM SUCCINATE 100 MG/2 ML VIAL IV PUSH ×3 (08:37→20:25)
[2022-10-19] MEDS: INSULIN HUMAN REGULAR (*BKC) 100 UNITS/ML 71 UNITS IV PUSH (08:41)
[2022-10-19] MEDS: INSULIN HUMAN REGULAR (*BKC) 100 UNITS in SODIUM CHLORIDE 0.9% IV 99 ML 70 UNITS IV CONT ×2 (08:43→09:58)
[2022-10-19 08:56] LABS: Ammonia < 9 umol/L (9-30)
[2022-10-19] MEDS: ENOXAPARIN 40 MG/0.4 ML SYRINGE SUB-Q (09:34)
[2022-10-19] MEDS: PANTOPRAZOLE SODIUM IV 40 MG VIAL IV PUSH ×2 (09:34→20:24)
[2022-10-19 10:05] LABS: Glucose Point of Care 399 mg/dl (65-105)
[2022-10-19 10:05] LABS: Glucose Point of Care 436 mg/dl (65-105)
[2022-10-19 10:41] LABS: Alveolar/Arterial O2 Gradient 188.7 mmHg; Base Excess ABG -8.8 mEq/l (+/-2.0); Fractional Inspired Oxygen 40 %; HCO3 ABG 16.4 mEq/l (22.0-26.0); Oxygen Content ABG 13.2 %vol (16.0-22.0); Oxygen Saturation ABG 88.5 % (95.0-100.0); Oxyhemoglobin 89.5 % THb (90.0-100.0); PO2 ABG 58.6 mmHg (80.0-100.0); PO2 FiO2 Ratio Arterial Blood 1.46 %; Total Hemoglobin 10.5 g/dL (12.0-18.0); pH ABG 7.315 (7.350-7.450)
[2022-10-19 10:44] LABS: Glucose Point of Care 306 mg/dl (65-105)
[2022-10-19 10:44] LABS: Device HIGH FLOW THERAPY; Site Drawn LEFT BRACHIAL
[2022-10-19 11:12] LABS: Glucose Point of Care 299 mg/dl (65-105)
[2022-10-19 11:37] LABS: Glucose Point of Care 253 mg/dl (65-105)
[2022-10-19 12:05] LABS: Glucose Point of Care 190 mg/dl (65-105)
[2022-10-19 12:34] LABS: Glucose Point of Care 146 mg/dl (65-105)
--- NOTE | 2022-10-19 12:59 | PM.IMPN ---
Progress Note: A&P Assessment and Plan (1) Sepsis: Code(s): A41.9 - Sepsis, unspecified organism Status: Acute Assessment and Plan: Suspected with hypotension and lactic acidosis She however has no leukocytosis. Remains empirically on Azactam, Levaquin, and vancomycin. Blood cultures are pending. Patient is being supported by vasopressors. She does have a central line that was placed in the emergency room. (2) DM2 (diabetes mellitus, type 2): Code(s): E11.9 - Type 2 diabetes mellitus without complications Status: Acute Assessment and Plan: Accu-Cheks every 6 hours with sliding scale insulin On insulin drip along with dextrose drip for treatment of medication overdose (3) COPD (chronic obstructive pulmonary disease): Code(s): J44.9 - Chronic obstructive pulmonary disease, unspecified Status: Acute Assessment and Plan: DuoNebs have been ordered (4) Anemia: Qualifiers: Anemia type: unspecified type Qualified Code(s): D64.9 - Anemia, unspecified Code(s): D64.9 - Anemia, unspecified Status: Acute Assessment and Plan: her H&H is 9.9 and 33.4. No previous labs for comparison no active bleeding is noted. Check stool for occult blood. Continue to monitor H&H. (5) Shock: Code(s): R57.9 - Shock, unspecified Status: Acute Assessment and Plan: Likely due to medication overdose Remains on vasopressors (6) Acute kidney injury: Code(s): N17.9 - Acute kidney failure, unspecified Status: Acute Assessment and Plan: Creatinine 1.5 on admission creatinine was 1 Likely due to hypotension Continue to monitor renal function and urine output CK level normal (7) Medication overdose: Code(s): T50.901A - Poisoning by unspecified drugs, medicaments and biological substances, accidental (unintentional), initial encounter Status: Acute Assessment and Plan: Likely with amlodipine and Lyrica (8) Suicidal behavior: Code(s): R45.89 - Other symptoms and signs involving emotional state Status: Acute Assessment and Plan: History of anxiety and depression (9) Encephalopathy: Code(s): G93.40 - Encephalopathy, unspecified Status: Acute Assessment and Plan: Multifactorial Continue to monitor Ammonia is normal Urine drug screen is negative Subjective Date/time seen: 10/19/22 12:59 Interval history: Chart reviewed. Patient remains unresponsive. Remains some vasopressors. On insulin and dextrose drip. Review of Systems Review of Systems: ROS unobtainable: Yes unobtainable due to mental status Exam Narrative: General: Unresponsive, in no acute distress at this time HEENT:? Pupils equal and reactive, sclera is clear Neck:? Supple Respiratory:? Clear to auscultation bilaterally Cardiac:? S1-S2 was normal, regular rate and rhythm Abdomen:? Soft, nontender, nondistended, hypoactive bowel sounds Extremities:? No edema, palpable pedal pulses Neuro:? Patient is unresponsive, does not open her eyes to name of follows simple commands. Withdraws to painful stimulus in all extremities Skin:? Warm and dry Psych:? Unable to assess at this time Objective Data Vital Signs Vital Signs: Vital Signs - 24 hr 10/18/22 16:35 10/18/22 16:44 10/18/22 16:53 Temperature 98.2 F Pulse Rate 76 67 66 Respiratory Rate 16 20 Blood Pressure 64/45 L Pulse Oximetry 96 98 Oxygen Delivery Room Air Oxygen Flow Rate Fraction of Inspired Oxygen 10/18/22 16:57 10/18/22 17:01 10/18/22 17:11 Temperature Pulse Rate 60 61 Respiratory Rate 21 H 21 H 20 Blood Pressure 63/38 L 74/40 L Pulse Oximetry 97 93 91 Oxygen Delivery Oxygen Flow Rate Fraction of Inspired Oxygen 10/18/22 17:22 10/18/22 17:27 10/18/22 16:41 Temperature Pulse Rate 59 L 70 74 Respiratory Rate 17 Blood Pressure 68/42 L 70/37 L Pulse Oximetry
[2022-10-19 13:07] LABS: Glucose Point of Care 124 mg/dl (65-105)
[2022-10-19 13:25] LABS: Hematocrit 28.6 % (37.0-47.0); Hemoglobin 8.8 g/dL (12.0-15.0)
[2022-10-19 13:35] LABS: Glucose Point of Care 91 mg/dl (65-105)
[2022-10-19 14:09] LABS: Glucose Point of Care 105 mg/dl (65-105)
[2022-10-19 14:40] LABS: Anion Gap 7 mmol/L (8-16); Blood Urea Nitrogen 26 mg/dL (7-17); Calcium 8.5 mg/dL (8.4-10.2); Carbon Dioxide 23 mmol/L (22-30); Chloride 101 mmol/L (98-107); Estimated CRCL calculation 23 ml/min; Estimated Glomerular Filt Rate 28; Glucose 75 mg/dL (65-110); Potassium 2.8 mmol/L (3.4-5.0); Sodium 131 mmol/L (137-145)
[2022-10-19] MEDS: POTASSIUM CHLORIDE 20 MEQ PACKET (FOR LIQUID) 40 MEQ FEED TUBE (15:04)
[2022-10-19] MEDS: KCL 40 MEQ/WATER 100 ML 100 ML 25 ML IVPB (15:05)
[2022-10-19 16:09] LABS: Glucose Point of Care < 20 mg/dl (65-105)
[2022-10-19] MEDS: DEXTROSE 50% 25 GM/50 ML SYRINGE IV PUSH ×2 (16:16→18:30)
--- NOTE | 2022-10-19 16:19 | PC.NURSE ---
Patient's blood sugar was 18, notified Dr. Burgos via phone, 1 amp of d50 given and 20% dextrose drip started at 30cc/hr per his orders
[2022-10-19 16:43] LABS: Glucose Point of Care 124 mg/dl (65-105)
--- NOTE | 2022-10-19 17:30 | PCRCNOTE ---
RN notified RT that patient SpO2 in 80s on Vapotherm. RT assessed patient. SpO2 waveform good, SpO2 87% on Vapotherm 35L 40%. RT increased Vapotherm to 40L 45%, SpO2 92% on new settings. RN aware.
[2022-10-19 18:21] LABS: Glucose Point of Care 49 mg/dl (65-105)
[2022-10-19 18:21] LABS: Glucose Point of Care 46 mg/dl (65-105)
--- NOTE | 2022-10-19 18:38 | PC.NURSE ---
After a blood sugar of 124, the next one was 49, increased dextrose to 50cc/hr, then rechecked blood sugar, 49, notified Dr. Burgos, new orders recieved, 12.5 mg of d50, and increased dextrose to 100cc/hr
[2022-10-19 18:56] LABS: Glucose Point of Care 172 mg/dl (65-105)
[2022-10-19 20:01] LABS: Glucose Point of Care 113 mg/dl (65-105)
[2022-10-19] MEDS: FUROSEMIDE INJ 40 MG/4 ML VIAL IV PUSH (20:24)
[2022-10-19 20:26] LABS: Basophils Percent Auto 0.2 % (0.2-1.2); Hematocrit 28.2 % (37.0-47.0); Hemoglobin 8.9 g/dL (12.0-15.0); Immature Granulocyte Percent A 0.6 % (0-0.5); Lymphocytes Absolute Auto 0.92 K/mm3 (0.9-3.2); Lymphocytes Percent Auto 5.2 % (18.3-44.2); Mean Corpuscular HGB Conc 31.6 g/dl (32-36); Mean Corpuscular Hemoglobin 27.9 pg (26-34); Mean Corpuscular Volume 88.4 fl (80-100); Mean Platelet Volume 9.5 fl (7.4-10.4); Monocytes Absolute Auto 1.1 K/mm3 (0.1-0.6); Neutrophils Absolute Auto 15.6 K/mm3 (1.3-6.7); Platelet Count Result 173 k/mm3 (150-375); Red Blood Count 3.19 M/mm3 (4.2-5.4); Red Cell Distribution Width 16.5 % (11.5-14.5); White Blood Count 17.7 K/mm3 (4.5-10.0)
[2022-10-19 20:38] LABS: Lactic Acid Reflex 2.1 mmol/L (0.7-2.0)
[2022-10-19 20:39] LABS: Alanine Aminotransferase 39 U/L (6-35); Albumin Level 2.9 g/dL (3.5-5.1); Alkaline Phosphatase 71 U/L (38-126); Anion Gap 6 mmol/L (8-16); Aspartate Amino Transferase 48 U/L (14-36); Bilirubin,Total 0.2 mg/dL (0.2-1.3); Blood Urea Nitrogen 29 mg/dL (7-17); Calcium 8.3 mg/dL (8.4-10.2); Carbon Dioxide 22 mmol/L (22-30); Chloride 103 mmol/L (98-107); Estimated CRCL calculation 22 ml/min; Estimated Glomerular Filt Rate 26; Glucose 88 mg/dL (65-110); Magnesium 2.2 mg/dL (1.6-2.3); Sodium 131 mmol/L (137-145)
--- NOTE | 2022-10-19 21:16 | PC.NURSE ---
Call received from [place] at poison contro.
--- NOTE | 2022-10-19 21:16 | PC.NURSE ---
Call received from [place] at poison control. Updated on overall patient condition, most recent lab work and vital signs. States to continue to monitor glucose and bp closely.
[2022-10-19 21:35] LABS: Glucose Point of Care 87 mg/dl (65-105)
[2022-10-19 23:24] LABS: Reflex Lactic Acid Yes or No Add Lactic
[2022-10-20] VITALS (49 sets, daily range): BP systolic 99–139; BP diastolic 43–78; PULSE 65–73; RESP 13–18; TEMP 36.7–37.3; O2SAT 85–100
--- NOTE | 2022-10-20 | ECHO_ITS ---
Patient Info Name: Christopher Chambers Age: 72 years : 1950 Gender: Female Ht: 65 in Wt: 165 lbs BSA: 1.87 m2 HR: 66 bpm BP: 127 / 49 mmHg Heart Rhythm: Sinus Rhythm Technical Quality: Fair Exam Date: 10/20/2022 8:02 AM [facility] Patient Status: Inpatient Admit Date: 10/18/2022 Staff Ordering Physician: Karolina Burgos MD [employer] Set Up Operator: Martha Figueroa RDCS Attending Provider: Kristina Biswas DO Exam Type: CA echo doppler color flow Study Info Indications - SHOCK Complete two-dimensional, color flow and Doppler transthoracic echocardiogram is performed. Summary 1. Complete two-dimensional, color flow and Doppler transthoracic echocardiogram is performed. 2. Left ventricular chamber dimension is normal. 3. Left ventricular systolic function is normal, estimated at 65-70%. 4. There is mildly increased left ventricular wall thickness. 5. Right ventricular systolic function is normal. 6. Left atrial chamber dimension is moderately enlarged. 7. Right atrial chamber dimension is moderately enlarged. 8. There is moderate mitral valve regurgitation. 9. There is moderate tricuspid valve regurgitation. 10. There is small anterior pericardial effusion. Left Ventricle Left ventricular chamber dimension is normal. Left ventricular systolic function is normal, estimated at 65-70%. There is mildly increased left ventricular wall thickness. Right Ventricle Right ventricular chamber dimension is normal. Right ventricular systolic function is normal. Left Atria Left atrial chamber dimension is moderately enlarged. Right Atria Right atrial chamber dimension is moderately enlarged. Atrial Septum Intact interatrial septum visualized by color flow imaging. Aortic Valve The aortic valve is not well visualized. There is no aortic valve stenosis. There is no aortic valve regurgitation. There is mild aortic valve calcification. Pulmonic Valve The pulmonic valve is not well visualized. Mitral Valve The mitral valve has thickened leaflets. There is moderate mitral valve regurgitation. The mitral valve annulus is moderately calcified. Tricuspid Valve There is moderate tricuspid valve regurgitation. Estimated pulmonary arterial systolic pressure is 39 mmHg. Pericardium/Pleural There is small anterior pericardial effusion. Inferior Vena Cava Dilated inferior vena cava with >50% collapse upon inspiration consistent with elevated right atrial pressure, 8 mmHg. Aorta The aortic root size at the sinus of Valsalva is normal. Left Ventricular Outflow Tract Name Value Normal LVOT 2D LVOT Diameter 2.0 cm LVOT Doppler LVOT Peak Gradient 5 mmHg LVOT Mean Gradient 3 mmHg LVOT VTI 22 cm LVOT VTI/AV VTI Ratio 0.9 LVOT Stroke Volume 69 ml LVOT CO 17.0 l/min LVOT CI 9.1 l/min/m2 Pulmonic Valve Name Value Normal
[2022-10-20 00:12] LABS: Lactic Acid 1.8 mmol/L (0.7-2.0)
[2022-10-20] MEDS: DEXTROSE 50% 25 GM/50 ML SYRINGE IV PUSH (01:13)
[2022-10-20] MEDS: IPRATROPIUM BR 0.02% INH SOLN 0.5 MG/2.5 ML VIAL INHALATION ×5 (01:45→20:16)
[2022-10-20 04:16] LABS: Glucose Point of Care 148 mg/dl (65-105)
[2022-10-20 04:16] LABS: Glucose Point of Care 75 mg/dl (65-105)
[2022-10-20 04:16] LABS: Glucose Point of Care 74 mg/dl (65-105)
[2022-10-20 04:16] LABS: Glucose Point of Care 81 mg/dl (65-105)
[2022-10-20 04:16] LABS: Glucose Point of Care 141 mg/dl (65-105)
[2022-10-20 05:18] LABS: Hematocrit 27.4 % (37.0-47.0); Hemoglobin 8.4 g/dL (12.0-15.0); Mean Corpuscular HGB Conc 30.7 g/dl (32-36); Mean Corpuscular Hemoglobin 26.8 pg (26-34); Mean Corpuscular Volume 87.3 fl (80-100); Platelet Count Result 163 k/mm3 (150-375); Red Blood Count 3.14 M/mm3 (4.2-5.4); Red Cell Distribution Width 16.5 % (11.5-14.5); White Blood Count 20.5 K/mm3 (4.5-10.0)
[2022-10-20 05:28] LABS: Alanine Aminotransferase 36 U/L (6-35); Albumin Level 2.8 g/dL (3.5-5.1); Alkaline Phosphatase 67 U/L (38-126); Anion Gap 7 mmol/L (8-16); Aspartate Amino Transferase 51 U/L (14-36); Bilirubin,Total 0.2 mg/dL (0.2-1.3); Blood Urea Nitrogen 33 mg/dL (7-17); Calcium 7.9 mg/dL (8.4-10.2); Carbon Dioxide 21 mmol/L (22-30); Chloride 99 mmol/L (98-107); Estimated CRCL calculation 23 ml/min; Estimated Glomerular Filt Rate 24; Glucose 128 mg/dL (65-110); Lipase 256 U/L (23-300); Magnesium 2.2 mg/dL (1.6-2.3); Phosphorus 5.1 mg/dL (2.5-4.5); Potassium 4.5 mmol/L (3.4-5.0); Sodium 127 mmol/L (137-145)
[2022-10-20 05:30] LABS: Lactic Acid Reflex 1.6 mmol/L (0.7-2.0)
--- NOTE | 2022-10-20 05:40 | PC.NURSE ---
Call received from Demi at poison control. Updated on patient condition. No further recommendations at this time.
[2022-10-20 05:44] LABS: Band Neutrophils Percent 24 % (0-6); Lymphocytes Absolute Manual 1.43 K/mm3 (1.1-4.5); Monocytes Absolute Manual 0.41 K/mm3 (0.1-0.90); Monocytes Percent Manual 2 % (3-9); Neutrophils Absolute Manual 18.65 K/mm3 (1.7-7.2); Neutrophils Percent Manual 67 % (46-73); Total Cells Counted 100
[2022-10-20 05:45] LABS: Poikilocytosis 1+ (NORMAL); Schistocytes None Seen (NORMAL)
[2022-10-20 05:46] LABS: Acanthocytes 1+ (NORMAL); Burr Cells 1+ (NORMAL); Hypersegmented Neutrophils Present; Hypochromasia 1+ (NORMAL)
[2022-10-20] MEDS: AZTREONAM 2 GM in SODIUM CHLORIDE 0.9% IV 100 ML 200 ML IVPB ×2 (06:05→18:05)
[2022-10-20] MEDS: HYDROCORTISONE SODIUM SUCCINATE 100 MG/2 ML VIAL IV PUSH ×3 (06:06→21:17)
[2022-10-20 06:56] LABS: Glucose Point of Care 226 mg/dl (65-105)
[2022-10-20] MEDS: LEVALBUTEROL NEB 1.25 MG/3 ML INHALATION ×4 (07:01→20:16)
--- NOTE | 2022-10-20 07:37 | WPDINTPN ---
Progress Note: A&P Assessment and Plan (1) Shock: Code(s): R57.9 - Shock, unspecified Status: Acute Assessment and Plan: Patient with shock most likely related to amlodipine overdose -patient has been adequately fluid-resuscitated -vasopressin and epinephrine infusions have been discontinue -weaning Levophed -maintain map > 65 mmHg end organ perfusion -patient started on stress dose steroids -poison control is on the case, -patient status post high-dose insulin and dextrose therapy significant improvement in blood pressures and weaning off vasopressors -remains on aztreonam, vancomycin (10/19) -levofloxacin was discontinued -possible aspiration, will add Flagyl for anaerobic coverage -CRP within normal -initial lactic acid was elevated but has normalized (2) Medication overdose: Code(s): T50.901A - Poisoning by unspecified drugs, medicaments and biological substances, accidental (unintentional), initial encounter Status: Acute Assessment and Plan: Likely overdose with amlodipine and Lyrica -amlodipine overdose caused severe hypotension refractory to IV fluids and vasopressors -10/19: Patient was started on high-dose insulin and dextrose with significant improvement in blood pressures and weaning of vasopressors (3) Suicidal behavior: Code(s): R45.89 - Other symptoms and signs involving emotional state Status: Acute Assessment and Plan: According the patient's daughter in-law, likely suicide behavior as she took unknown amount of amlodipine and Lyrica as the [id number] found the bottles around the patient at home -continue suicide precautions -bedside sitter in room -will have care coordination and crisis management evaluate the patient once she is medically stable for placement in a psychiatric unit (4) Encephalopathy: Code(s): G93.40 - Encephalopathy, unspecified Status: Acute Assessment and Plan: Encephalopathy can be multifactorial most likely medication overdose with amlodipine and Lyrica -patient has been adequately fluid-resuscitated, -ammonia levels within normal limit -continue maintenance IV fluids -mental status slowly improving (5) DM2 (diabetes mellitus, type 2): Qualifiers: Diabetes mellitus intermodal customer service insulin use: unspecified intermodal customer service insulin use status Diabetes mellitus complication status: without complication Qualified Code(s): E11.9 - Type 2 diabetes mellitus without complications Code(s): E11.9 - Type 2 diabetes mellitus without complications Status: Acute Assessment and Plan: Continue Accu-Cheks and sliding scale insulin -currently hypoglycemic with D20 infusion (6) COPD (chronic obstructive pulmonary disease): Qualifiers: COPD type: COPD with acute exacerbation Qualified Code(s): J44.1 - Chronic obstructive pulmonary disease with (acute) exacerbation Code(s): J44.9 - Chronic obstructive pulmonary disease, unspecified Status: Acute Assessment and Plan: Patient currently on Vapotherm, 45 L flow rate and 65% FiO2 -audible wheezing, will administer Solu-Medrol -continue bronchodilators -will give continuous nebulizer this morning on 10/20 -wean FiO2 to maintain O2 sats > 92% (7) Adjustment reaction with anxiety and depression: Code(s): F43.23 - Adjustment disorder with mixed anxiety and depressed mood Status: Acute Assessment and Plan: Patient with history of anxiety and depression -patient has been depressed because she did lose her dog on the day of admission (8) Acute kidney injury: Code(s): N17.9 - Acute kidney failure, unspecified Status: Acute Assessment and Plan: Patient with acute kidney injury likely related to severe shock secondary to hypotension -patient has been adequately fluid-resuscitated -currently on dextrose 20% IV fluids for hypo natremia -pressor requirements have decreased significantly, patient is off epine
[2022-10-20 07:54] LABS: Creatine Kinase 126 U/L (30-135)
[2022-10-20] MEDS: ALBUTEROL SULFATE NEB 2.5 MG/3 ML INH 15 MG INHALATION (08:00)
[2022-10-20] MEDS: methylPREDNISolone SOD SUCC 125 MG VIAL IV PUSH (08:07)
[2022-10-20] MEDS: PANTOPRAZOLE SODIUM IV 40 MG VIAL IV PUSH ×2 (08:07→21:18)
[2022-10-20] MEDS: metroNIDAZOLE 500 MG/ISO 100ML 500 MG/100 ML BAG 100 MG IVPB ×2 (08:08→15:26)
[2022-10-20 08:27] LABS: Glucose Point of Care 259 mg/dl (65-105)
[2022-10-20] MEDS: INSULIN ASPART (*BKC) 100 UNITS/ML SUB-Q (09:02)
[2022-10-20 09:57] LABS: Creatinine Urine 129.6 mg/dL
[2022-10-20 10:06] LABS: Potassium Urine Random 38.6 meq/L
[2022-10-20 10:37] LABS: Sodium Urine Random < 5 meq/L
[2022-10-20 10:51] LABS: Eosinophil Urine None Seen % (None Seen)
[2022-10-20 10:52] LABS: Urine Eos QC 2nd Tech Confirmed
--- NOTE | 2022-10-20 11:45 | PM.CNNEP ---
Assessment and Plan Assessment and plan (1) Acute kidney injury: Code(s): N17.9 - Acute kidney failure, unspecified Status: Acute Assessment and Plan: multifactorial: hemodynamic instability hypotension shock contrast exposure (with CTA of chest on admission) sepsis (?) possible prerenal factors s/p aggressive IVF resuscitation evaluation to date: urine electrolytes prerenal urine eosinophils negative CPK normal renal ultrasound pending continue efforts to maintain hemodynamics she remains at risk for needing renal replacement therapy/dialysis. not opposed to trial of IV diuretics continue to monitor renal function, electrolytes and urine output (2) Shock: Code(s): R57.9 - Shock, unspecified Status: Acute Assessment and Plan: presumably secondary to amlodipine overdose s/p adequate fluid resuscitation pressors are weaned off (was on 3 pressors on admission) stress dose steroids poison control recommendations noted: status post high-dose insulin and dextrose therapy significant improvement in blood pressures and weaning off vasopressors lactic acid has normalized follow culture data on empiric antibiotics (3) Medication overdose: Code(s): T50.901A - Poisoning by unspecified drugs, medicaments and biological substances, accidental (unintentional), initial encounter Status: Acute Assessment and Plan: though to be an overdose with amlodipine and Lyrica amlodipine overdose caused severe hypotension refractory to IV fluids and vasopressors however, with use of high-dose insulin and dextrose, noted significant improvement in blood pressures and weaning of vasopressors (4) Encephalopathy: Code(s): G93.40 - Encephalopathy, unspecified Status: Acute Assessment and Plan: also likely secondary to medication overdose with amlodipine and Lyrica slow improvement noted continue supportive care (5) COPD (chronic obstructive pulmonary disease): Qualifiers: COPD type: COPD with acute exacerbation Qualified Code(s): J44.1 - Chronic obstructive pulmonary disease with (acute) exacerbation Code(s): J44.9 - Chronic obstructive pulmonary disease, unspecified Status: Acute Assessment and Plan: supplemental oxygen therapy as noted on steroids already nebulizer treatments and bronchodilators follow respiratory status closely known code status of DNR/DNI (6) Suicidal behavior: Code(s): R45.89 - Other symptoms and signs involving emotional state Status: Acute Assessment and Plan: according to family, suspect suicide behavior for medication overdose she also has a history of anxiety and depression she has been more depressed recently due to the of her dog suicide precautions sitter in room may need psychiatric unit placement once medically stable (7) DM2 (diabetes mellitus, type 2): Qualifiers: Diabetes mellitus snf insulin use: unspecified snf insulin use status Diabetes mellitus complication status: without complication Qualified Code(s): E11.9 - Type 2 diabetes mellitus without complications Code(s): E11.9 - Type 2 diabetes mellitus without complications Status: Acute Assessment and Plan: follow Accu-Cheks glycemic control per broomcorn seeder I had a long extensive discussion (greater than 25 min) with the patient's son at bedside regarding her acute kidney injury/acute renal failure and the concern that this condition may progress/worsen with time. I relayed my concern that she is at risk for the possible need of renal replacement therapy/dialysis as well. Despite the patient's confusion, when I did mention this topic of dialysis, she immediately screamed out no. The patient's son also seemed to voice that she would not want renal replacement therapy/dialysis in general as well and did ask me appropriate
--- NOTE | 2022-10-20 11:45 | P.CONNP_ITS ---
Assessment and Plan Assessment and plan (1) Acute kidney injury: Code(s): N17.9 - Acute kidney failure, unspecified Status: Acute Assessment and Plan: * multifactorial: * hemodynamic instability * hypotension * shock * contrast exposure (with CTA of chest on admission) * sepsis (?) * possible prerenal factors * s/p aggressive IVF resuscitation * evaluation to date: * urine electrolytes prerenal * urine eosinophils negative * CPK normal * renal ultrasound pending * continue efforts to maintain hemodynamics * she remains at risk for needing renal replacement therapy/dialysis. * not opposed to trial of IV diuretics * continue to monitor renal function, electrolytes and urine output (2) Shock: Code(s): R57.9 - Shock, unspecified Status: Acute Assessment and Plan: * presumably secondary to amlodipine overdose * s/p adequate fluid resuscitation * pressors are weaned off (was on 3 pressors on admission) * stress dose steroids * poison control recommendations noted: * status post high-dose insulin and dextrose therapy significant improvement in blood pressures and weaning off vasopressors * lactic acid has normalized * follow culture data * on empiric antibiotics (3) Medication overdose: Code(s): T50.901A - Poisoning by unspecified drugs, medicaments and biological substances, accidental (unintentional), initial encounter Status: Acute Assessment and Plan: * though to be an overdose with amlodipine and Lyrica * amlodipine overdose caused severe hypotension refractory to IV fluids and vasopressors * however, with use of high-dose insulin and dextrose, noted significant improvement in blood pressures and weaning of vasopressors (4) Encephalopathy: Code(s): G93.40 - Encephalopathy, unspecified Status: Acute Assessment and Plan: * also likely secondary to medication overdose with amlodipine and Lyrica * slow improvement noted * continue supportive care (5) COPD (chronic obstructive pulmonary disease): Qualifiers: COPD type: COPD with acute exacerbation Qualified Code(s): J44.1 - Chronic obstructive pulmonary disease with (acute) exacerbation Code(s): J44.9 - Chronic obstructive pulmonary disease, unspecified Status: Acute Assessment and Plan: * supplemental oxygen therapy as noted * on steroids already * nebulizer treatments and bronchodilators * follow respiratory status closely * known code status of DNR/DNI (6) Suicidal behavior: Code(s): R45.89 - Other symptoms and signs involving emotional state Status: Acute Assessment and Plan: * according to family, suspect suicide behavior for medication overdose * she also has a history of anxiety and depression * she has been more depressed recently due to the of her dog * suicide precautions * sitter in room * may need psychiatric unit placement once medically stable (7) DM2 (diabetes mellitus, type 2): Qualifiers: Diabetes mellitus terminal operations manager insulin use: unspecified shelter insulin use status Diabetes mellitus complication status: without complication Qualified Code(s): E11.9 - Type 2 diabetes mellitus without complications Code(s): E11.9 - Type 2 diabetes mellitus without complications Status: Acute Assessment and Plan: * follow Accu-Cheks * glycemic control per audioprosthologist I had a long extensive discussion (greater than 25 min) with the patient's son at bedside regarding he
[2022-10-20 11:51] LABS: Glucose Point of Care 193 mg/dl (65-105)
[2022-10-20] MEDS: methylPREDNISolone SOD SUCC 125 MG VIAL 60 MG IV PUSH ×2 (11:51→18:08)
[2022-10-20 13:31] LABS: IFOB Positive Control Positive; Immunochemical Fecal Occult Bl Positive (N)
[2022-10-20 13:34] LABS: Glucose Point of Care 156 mg/dl (65-105)
[2022-10-20] MEDS: CENTRAL LINE FLUSH 10 ML IV PUSH ×2 (13:50→21:18)
[2022-10-20 14:39] LABS: Glucose Point of Care 144 mg/dl (65-105)
--- NOTE | 2022-10-20 15:00 | PM.IMPN ---
Progress Note: A&P Assessment and Plan (1) Sepsis: Code(s): A41.9 - Sepsis, unspecified organism Status: Acute Assessment and Plan: Suspected with hypotension and lactic acidosis She however has no leukocytosis. Remains empirically on Azactam, Levaquin, and vancomycin. Blood cultures are pending. Patient is being supported by vasopressors. She does have a central line that was placed in the emergency room. Off of vasopressor now. Chest x-ray with pneumonia likely aspiration related added Flagyl for anaerobic coverage. (2) DM2 (diabetes mellitus, type 2): Qualifiers: Diabetes mellitus residential manager insulin use: unspecified detention insulin use status Diabetes mellitus complication status: without complication Qualified Code(s): E11.9 - Type 2 diabetes mellitus without complications Code(s): E11.9 - Type 2 diabetes mellitus without complications Status: Acute Assessment and Plan: Accu-Cheks every 6 hours with sliding scale insulin On insulin drip along with dextrose drip for treatment of medication overdose Hypoglycemic 10/20/2022: Insulin drip has been off (3) COPD (chronic obstructive pulmonary disease): Qualifiers: COPD type: COPD with acute exacerbation Qualified Code(s): J44.1 - Chronic obstructive pulmonary disease with (acute) exacerbation Code(s): J44.9 - Chronic obstructive pulmonary disease, unspecified Status: Acute Assessment and Plan: DuoNebs have been ordered With active wheezing possible exacerbation related to recent aspiration episode steroid has been started Continue bronchodilators (4) Anemia: Qualifiers: Anemia type: unspecified type Qualified Code(s): D64.9 - Anemia, unspecified Code(s): D64.9 - Anemia, unspecified Status: Acute Assessment and Plan: her H&H is 9.9 and 33.4. No previous labs for comparison coffee-ground emesis /NG output noted Occult blood testing has been sent Monitor H&H and transfuse as needed to keep hemoglobin more than 7 (5) Shock: Code(s): R57.9 - Shock, unspecified Status: Acute Assessment and Plan: Likely due to medication overdose Improved with insulin dextrose drip which has now been turned off due to hypoglycemia Off vasopressors now (6) Acute kidney injury: Code(s): N17.9 - Acute kidney failure, unspecified Status: Acute Assessment and Plan: Creatinine 1.5 on admission creatinine was 1 Likely due to hypotension Continue to monitor renal function and urine output CK level normal Creatinine continues to worsen Nephrology has been consulted renal ultrasound (7) Medication overdose: Code(s): T50.901A - Poisoning by unspecified drugs, medicaments and biological substances, accidental (unintentional), initial encounter Status: Acute Assessment and Plan: Likely with amlodipine and Lyrica (8) Suicidal behavior: Code(s): R45.89 - Other symptoms and signs involving emotional state Status: Acute Assessment and Plan: History of anxiety and depression (9) Encephalopathy: Code(s): G93.40 - Encephalopathy, unspecified Status: Acute Assessment and Plan: Multifactorial Continue to monitor Ammonia is normal Urine drug screen is negative Subjective Date/time seen: 10/20/22 15:00 Interval history: overnight patient had hypoglycemic episode. Her insulin drip has been turned off. She is wheezy she is more awake and answering and following commands. She has been off of vasopressor now. She received a dose of Solu-Medrol area today. Remains on Vapotherm at 45% FiO2. Review of Systems Review of Systems: All systems reviewed & are unremarkable except as noted in HPI and below Exam Narrative: General: More responsive follows commands in no acute distress at this time HEENT:? Pupils equal and reactive, sclera is clear Neck:? Supple Res
--- NOTE | 2022-10-20 15:03 | PC.NURSE ---
Ena with poison control called at 1500. Updates given including current patient assessment, full set of vitals and any changes made to patient's plan of care. NO current recommendations from poison control standpoint at this time. Poison control to continue to monitor and call for further updates in patient condition.
[2022-10-20 18:04] LABS: Glucose Point of Care 149 mg/dl (65-105)
[2022-10-20 21:23] LABS: Glucose Point of Care 183 mg/dl (65-105)
--- NOTE | 2022-10-20 21:47 | PC.NURSE ---
Patient's son Ian informed this RN that suicide note was found at patient's residence today. Suicide precautions already in place r/t overdose.
[2022-10-21] VITALS (59 sets, daily range): BP systolic 108–143; BP diastolic 38–71; PULSE 58–96; RESP 17–28; TEMP 36.4–37.2; O2SAT 81–99
[2022-10-21] MEDS: methylPREDNISolone SOD SUCC 125 MG VIAL 60 MG IV PUSH ×4 (00:18→17:01)
[2022-10-21 00:22] LABS: Glucose Point of Care 189 mg/dl (65-105)
[2022-10-21] MEDS: metroNIDAZOLE 500 MG/ISO 100ML 500 MG/100 ML BAG 100 MG IVPB ×4 (00:26→23:13)
[2022-10-21] MEDS: LEVALBUTEROL NEB 1.25 MG/3 ML INHALATION ×7 (00:59→23:45)
[2022-10-21] MEDS: IPRATROPIUM BR 0.02% INH SOLN 0.5 MG/2.5 ML VIAL INHALATION ×7 (00:59→23:44)
[2022-10-21] MEDS: NOREPINEPHRINE 8 MG/D5W 250 ML 8 MG/250 ML BAG 9.38 MG IV CONT (02:15)
[2022-10-21 04:19] LABS: Glucose Point of Care 195 mg/dl (65-105)
[2022-10-21] MEDS: AZTREONAM 2 GM in SODIUM CHLORIDE 0.9% IV 100 ML 200 ML IVPB ×2 (06:16→17:01)
[2022-10-21] MEDS: CENTRAL LINE FLUSH 10 ML IV PUSH ×3 (06:17→20:37)
[2022-10-21 06:20] LABS: Basophils Percent Auto 0.2 % (0.2-1.2); Hematocrit 26.6 % (37.0-47.0); Hemoglobin 8.3 g/dL (12.0-15.0); Immature Granulocyte Absolute 0.14 K/mm3 (0.00-0.031); Immature Granulocyte Percent A 0.7 % (0-0.5); Lymphocytes Absolute Auto 0.46 K/mm3 (0.9-3.2); Lymphocytes Percent Auto 2.3 % (18.3-44.2); Mean Corpuscular HGB Conc 31.2 g/dl (32-36); Mean Corpuscular Hemoglobin 27.4 pg (26-34); Mean Corpuscular Volume 87.8 fl (80-100); Mean Platelet Volume 10.1 fl (7.4-10.4); Monocytes Absolute Auto 0.8 K/mm3 (0.1-0.6); Neutrophils Absolute Auto 18.6 K/mm3 (1.3-6.7); Neutrophils Percent Auto 92.8 % (45.5-73.1); Platelet Count Result 182 k/mm3 (150-375); Red Blood Count 3.03 M/mm3 (4.2-5.4); Red Cell Distribution Width 16.8 % (11.5-14.5)
[2022-10-21 06:33] LABS: Lactic Acid Reflex 1.1 mmol/L (0.7-2.0)
[2022-10-21 06:39] LABS: Alanine Aminotransferase 40 U/L (6-35); Albumin Level 3.4 g/dL (3.5-5.1); Alkaline Phosphatase 73 U/L (38-126); Anion Gap 11 mmol/L (8-16); Aspartate Amino Transferase 51 U/L (14-36); Bilirubin,Total 0.3 mg/dL (0.2-1.3); Blood Urea Nitrogen 57 mg/dL (7-17); Carbon Dioxide 19 mmol/L (22-30); Chloride 92 mmol/L (98-107); Estimated CRCL calculation 19 ml/min; Estimated Glomerular Filt Rate 20; Glucose 171 mg/dL (65-110); Magnesium 2.3 mg/dL (1.6-2.3); Phosphorus 7.4 mg/dL (2.5-4.5); Potassium 5.5 mmol/L (3.4-5.0); Sodium 122 mmol/L (137-145)
--- NOTE | 2022-10-21 07:37 | WPDINTPN ---
Progress Note: A&P Assessment and Plan (1) Shock: Code(s): R57.9 - Shock, unspecified Status: Acute Assessment and Plan: Patient with shock most likely related to amlodipine overdose -patient has been adequately fluid-resuscitated -vasopressin and epinephrine infusions have been discontinue -weaning Levophed -maintain map > 65 mmHg for adequate end organ perfusion -poison control is on the case, -Status post high-dose insulin and dextrose therapy significant improvement in blood pressures and weaning off vasopressors -remains on aztreonam, vancomycin (10/19) -levofloxacin was discontinued -Flagyl added on (10/20) for possible aspiration pneumonia -initial lactic acid was elevated but has normalized (2) Medication overdose: Code(s): T50.901A - Poisoning by unspecified drugs, medicaments and biological substances, accidental (unintentional), initial encounter Status: Acute Assessment and Plan: Likely overdose with amlodipine and Lyrica -amlodipine overdose caused severe hypotension refractory to IV fluids and vasopressors -10/19: Patient was started on high-dose insulin and dextrose with significant improvement in blood pressures and weaning of vasopressors -now status post high-dose insulin dextrose therapy (3) Suicidal behavior: Code(s): R45.89 - Other symptoms and signs involving emotional state Status: Acute Assessment and Plan: According the patient's daughter in-law, likely suicide behavior as she took unknown amount of amlodipine and Lyrica as the [id number] found the bottles around the patient at home -continue suicide precautions -bedside sitter in room -will have care coordination and crisis management evaluate the patient once she is medically stable for placement in a psychiatric unit -the son and [id number] found suicide note in patient's room (4) Encephalopathy: Code(s): G93.40 - Encephalopathy, unspecified Status: Acute Assessment and Plan: Encephalopathy can be multifactorial most likely medication overdose with amlodipine and Lyrica, electrolyte imbalance, hypotension -patient has been adequately fluid-resuscitated, -ammonia levels within normal limit -treat underlying cause -continue to monitor (5) DM2 (diabetes mellitus, type 2): Qualifiers: Diabetes mellitus complication status: without complication Diabetes mellitus extermination supervisor insulin use: unspecified extermination supervisor insulin use status Qualified Code(s): E11.9 - Type 2 diabetes mellitus without complications Code(s): E11.9 - Type 2 diabetes mellitus without complications Status: Acute Assessment and Plan: Continue Accu-Cheks and sliding scale insulin -discontinue D20 infusion (6) COPD (chronic obstructive pulmonary disease): Qualifiers: COPD type: COPD with acute exacerbation Qualified Code(s): J44.1 - Chronic obstructive pulmonary disease with (acute) exacerbation Code(s): J44.9 - Chronic obstructive pulmonary disease, unspecified Status: Acute Assessment and Plan: Patient currently on Vapotherm, 45 L flow rate and 40% FiO2 -wheezing has improved, will continue Solu-Medrol -continue bronchodilators -add budesonide -wean FiO2 to maintain O2 sats > 92% (7) Adjustment reaction with anxiety and depression: Code(s): F43.23 - Adjustment disorder with mixed anxiety and depressed mood Status: Acute Assessment and Plan: Patient with history of anxiety and depression -patient has been depressed because she did lose her dog on the day of admission (8) Acute kidney injury: Code(s): N17.9 - Acute kidney failure, unspecified Status: Acute Assessment and Plan: Patient with acute kidney injury likely related to severe shock secondary to hypotension -patient has been adequately fluid-resuscitated -pressor requirements have decreased significantly, patient is off epinephrine and vasopressin, r
[2022-10-21] MEDS: FUROSEMIDE INJ 100 MG/10 ML VIAL 80 MG IV PUSH (07:55)
[2022-10-21] MEDS: SODIUM BICARBONATE 8.4% 50 MEQ/50 ML SYRINGE IV PUSH (07:55)
[2022-10-21] MEDS: DEXTROSE 50% 25 GM/50 ML SYRINGE IV PUSH (07:55)
[2022-10-21] MEDS: INSULIN HUMAN REGULAR (*BKC) 100 UNITS/ML 10 UNITS IV PUSH (07:56)
[2022-10-21] MEDS: SODIUM ZIRCONIUM CYCLOSILICATE 10 GM POWD.PACK FEED TUBE (07:56)
[2022-10-21] MEDS: BUDESONIDE RESPULE NEB 0.5 MG/2 ML AMP INHALATION ×2 (08:13→20:25)
[2022-10-21] MEDS: PANTOPRAZOLE SODIUM IV 40 MG VIAL IV PUSH ×2 (08:14→20:36)
[2022-10-21 08:15] LABS: Anisocytosis 1+ (NORMAL); Burr Cells 1+ (NORMAL); Large Platelets Present; Platelet Estimate Adequate (Adequate); Schistocytes None Seen (NORMAL)
[2022-10-21] MEDS: SODIUM CHLORIDE 500 MG TABLET 1000 MG FEED TUBE ×2 (09:07→16:04)
[2022-10-21 09:34] LABS: Anion Gap 9 mmol/L (8-16); Blood Urea Nitrogen 58 mg/dL (7-17); Calcium 6.6 mg/dL (8.4-10.2); Carbon Dioxide 21 mmol/L (22-30); Chloride 93 mmol/L (98-107); Estimated CRCL calculation 17 ml/min; Estimated Glomerular Filt Rate 17; Glucose 150 mg/dL (65-110); Sodium 123 mmol/L (137-145)
[2022-10-21 10:02] LABS: Glucose Point of Care 189 mg/dl (65-105)
[2022-10-21 10:02] LABS: Glucose Point of Care 147 mg/dl (65-105)
--- NOTE | 2022-10-21 11:37 | PM.IMPN ---
Progress Note: A&P Assessment and Plan (1) Sepsis: Code(s): A41.9 - Sepsis, unspecified organism Status: Acute Assessment and Plan: Suspected with hypotension and lactic acidosis She however has no leukocytosis. Remains empirically on Azactam, Levaquin, and vancomycin. Blood cultures are pending. Patient is being supported by vasopressors. She does have a central line that was placed in the emergency room. Off of vasopressor now. Chest x-ray with pneumonia likely aspiration related added Flagyl for anaerobic coverage. Chest x-ray today with congestive changes. Lasix ordered as per senior principal Renal failure worsening as well nephrology on board continue to monitor urine output and renal function (2) DM2 (diabetes mellitus, type 2): Qualifiers: Diabetes mellitus chcf insulin use: unspecified chcf insulin use status Diabetes mellitus complication status: without complication Qualified Code(s): E11.9 - Type 2 diabetes mellitus without complications Code(s): E11.9 - Type 2 diabetes mellitus without complications Status: Acute Assessment and Plan: Accu-Cheks every 6 hours with sliding scale insulin On insulin drip along with dextrose drip for treatment of medication overdose Hypoglycemic 10/20/2022: Insulin drip has been off Continue to monitor Accu-Cheks as ordered Hypoglycemia likely related to underlying sepsis/insulin (3) COPD (chronic obstructive pulmonary disease): Qualifiers: COPD type: COPD with acute exacerbation Qualified Code(s): J44.1 - Chronic obstructive pulmonary disease with (acute) exacerbation Code(s): J44.9 - Chronic obstructive pulmonary disease, unspecified Status: Acute Assessment and Plan: DuoNebs have been ordered With active wheezing possible exacerbation related to recent aspiration episode steroid has been started Continue bronchodilators (4) Anemia: Qualifiers: Anemia type: unspecified type Qualified Code(s): D64.9 - Anemia, unspecified Code(s): D64.9 - Anemia, unspecified Status: Acute Assessment and Plan: her H&H is 9.9 and 33.4. No previous labs for comparison coffee-ground emesis /NG output noted Occult blood testing came back positive Monitor H&H and transfuse as needed to keep hemoglobin more than 7 Remains on PPI b.i.d. Supportive treatment as ordered H&H remained stable today. (5) Shock: Code(s): R57.9 - Shock, unspecified Status: Acute Assessment and Plan: Likely due to medication overdose Improved with insulin dextrose drip which has now been turned off due to hypoglycemia Off vasopressors now (6) Acute kidney injury: Code(s): N17.9 - Acute kidney failure, unspecified Status: Acute Assessment and Plan: Creatinine 1.5 on admission creatinine was 1 Likely due to hypotension Continue to monitor renal function and urine output CK level normal Creatinine continues to worsen Nephrology has been consulted renal ultrasound is negative for hydronephrosis Urine output is declined. Avoid nephrotoxic drugs Maintain hemodynamics. (7) Medication overdose: Code(s): T50.901A - Poisoning by unspecified drugs, medicaments and biological substances, accidental (unintentional), initial encounter Status: Acute Assessment and Plan: Likely with amlodipine and Lyrica (8) Suicidal behavior: Code(s): R45.89 - Other symptoms and signs involving emotional state Status: Acute Assessment and Plan: History of anxiety and depression (9) Encephalopathy: Code(s): G93.40 - Encephalopathy, unspecified Status: Acute Assessment and Plan: Multifactorial Continue to monitor Ammonia is normal Urine drug screen is negative Subjective Date/time seen: 10/21/22 11:37 Interval history: Patient more somnolent today. And now failure worsening. Remains on Vapotherm at 45%
--- NOTE | 2022-10-21 12:01 | PM.PNNEP ---
Progress Note: A&P Assessment and Plan (1) Acute kidney injury: Code(s): N17.9 - Acute kidney failure, unspecified Status: Acute Assessment and Plan: continues to deteriorate multifactorial: hemodynamic instability hypotension shock contrast exposure (with CTA of chest on admission) sepsis (?) possible prerenal factors s/p aggressive IVF resuscitation evaluation to date: urine electrolytes prerenal urine eosinophils negative CPK normal renal ultrasound normal continue efforts to maintain hemodynamics she remains at risk for needing renal replacement therapy/dialysis patient's son feels she wound not want dialysis not opposed to trial of IV diuretics continue to monitor renal function, electrolytes and urine output (2) Shock: Code(s): R57.9 - Shock, unspecified Status: Acute Assessment and Plan: presumably secondary to amlodipine overdose s/p adequate fluid resuscitation pressors are weaned off (was on 3 pressors on admission) stress dose steroids poison control recommendations noted: status post high-dose insulin and dextrose therapy significant improvement in blood pressures and weaning off vasopressors lactic acid has normalized follow culture data on empiric antibiotics (3) Hyponatremia: Code(s): E87.1 - Hypo-osmolality and hyponatremia Status: Acute Assessment and Plan: most likely due to D20W IVFs (off currently) salt tabs per tube added would also switch all IVPBs/IV medications to use normal saline as carrier fluid follow trend of sodium levels (4) Medication overdose: Code(s): T50.901A - Poisoning by unspecified drugs, medicaments and biological substances, accidental (unintentional), initial encounter Status: Acute Assessment and Plan: though to be an overdose with amlodipine and Lyrica amlodipine overdose caused severe hypotension refractory to IV fluids and vasopressors however, with use of high-dose insulin and dextrose, noted significant improvement in blood pressures and weaning of vasopressors (5) Encephalopathy: Code(s): G93.40 - Encephalopathy, unspecified Status: Acute Assessment and Plan: also likely secondary to medication overdose with amlodipine and Lyrica slow improvement noted continue supportive care (6) COPD (chronic obstructive pulmonary disease): Qualifiers: COPD type: COPD with acute exacerbation Qualified Code(s): J44.1 - Chronic obstructive pulmonary disease with (acute) exacerbation Code(s): J44.9 - Chronic obstructive pulmonary disease, unspecified Status: Acute Assessment and Plan: supplemental oxygen therapy as noted on steroids already nebulizer treatments and bronchodilators follow respiratory status closely known code status of DNR/DNI (7) Suicidal behavior: Code(s): R45.89 - Other symptoms and signs involving emotional state Status: Acute Assessment and Plan: according to family, suspect suicide behavior for medication overdose she also has a history of anxiety and depression she has been more depressed recently due to the of her dog suicide precautions sitter in room may need psychiatric unit placement once medically stable (8) DM2 (diabetes mellitus, type 2): Qualifiers: Diabetes mellitus exterminator helper insulin use: unspecified exterminator helper insulin use status Diabetes mellitus complication status: without complication Qualified Code(s): E11.9 - Type 2 diabetes mellitus without complications Code(s): E11.9 - Type 2 diabetes mellitus without complications Status: Acute Assessment and Plan: follow Accu-Cheks glycemic control per panelbeater Will continue to follow. Subjective Date/time seen: 10/21/22 12:01 Interval history: Follow-up for acute renal failure/acute kidney injury. Remains on high oxygen require
[2022-10-21 14:18] LABS: Glucose Point of Care 136 mg/dl (65-105)
[2022-10-21 16:50] LABS: Glucose Point of Care 150 mg/dl (65-105)
[2022-10-21 18:38] LABS: Vancomycin Trough 20.6 ug/mL (10.0-20.0)
[2022-10-21 19:36] LABS: Glucose Point of Care 139 mg/dl (65-105)
[2022-10-21] MEDS: VANCOMYCIN 1,250 MG/NS 250 ML 1,250 MG/250 ML BAG 166.67 MG IVPB (23:12)
[2022-10-22] VITALS (106 sets, daily range): BP systolic 94–169; BP diastolic 29–149; PULSE 69–84; RESP 18–26; TEMP 36.6–37.3; O2SAT 48–100
[2022-10-22 00:04] LABS: Glucose Point of Care 158 mg/dl (65-105)
[2022-10-22] MEDS: methylPREDNISolone SOD SUCC 125 MG VIAL 60 MG IV PUSH ×3 (00:12→12:19)
[2022-10-22 04:17] LABS: Glucose Point of Care 171 mg/dl (65-105)
[2022-10-22 04:27] LABS: Basophils Percent Auto 0.1 % (0.2-1.2); Hematocrit 24.5 % (37.0-47.0); Hemoglobin 7.7 g/dL (12.0-15.0); Immature Granulocyte Absolute 0.11 K/mm3 (0.00-0.031); Lymphocytes Absolute Auto 0.27 K/mm3 (0.9-3.2); Lymphocytes Percent Auto 2.5 % (18.3-44.2); Mean Corpuscular HGB Conc 31.4 g/dl (32-36); Mean Corpuscular Hemoglobin 27.1 pg (26-34); Mean Corpuscular Volume 86.3 fl (80-100); Mean Platelet Volume 10.7 fl (7.4-10.4); Monocytes Absolute Auto 0.4 K/mm3 (0.1-0.6); Monocytes Percent Auto 3.7 % (2.6-8.5); Neutrophils Absolute Auto 10.1 K/mm3 (1.3-6.7); Neutrophils Percent Auto 92.7 % (45.5-73.1); Nucleated Red Blood Cells Perc 0.3 % (0.0-0.2); Platelet Count Result 149 k/mm3 (150-375); Red Blood Count 2.84 M/mm3 (4.2-5.4); Red Cell Distribution Width 16.3 % (11.5-14.5); White Blood Count 10.9 K/mm3 (4.5-10.0)
[2022-10-22] MEDS: IPRATROPIUM BR 0.02% INH SOLN 0.5 MG/2.5 ML VIAL INHALATION ×3 (04:51→14:13)
[2022-10-22] MEDS: LEVALBUTEROL NEB 1.25 MG/3 ML INHALATION ×2 (04:51→14:13)
[2022-10-22 05:01] LABS: Alanine Aminotransferase 36 U/L (6-35); Alkaline Phosphatase 66 U/L (38-126); Anion Gap 8 mmol/L (8-16); Aspartate Amino Transferase 39 U/L (14-36); Bilirubin,Total 0.3 mg/dL (0.2-1.3); Blood Urea Nitrogen 83 mg/dL (7-17); Calcium 6.5 mg/dL (8.4-10.2); Carbon Dioxide 22 mmol/L (22-30); Chloride 94 mmol/L (98-107); Estimated CRCL calculation 14 ml/min; Estimated Glomerular Filt Rate 13; Glucose 142 mg/dL (65-110); Magnesium 2.4 mg/dL (1.6-2.3); Phosphorus 9.4 mg/dL (2.5-4.5); Potassium 5.1 mmol/L (3.4-5.0); Sodium 124 mmol/L (137-145)
[2022-10-22] MEDS: CENTRAL LINE FLUSH 10 ML IV PUSH ×3 (05:45→18:19)
[2022-10-22] MEDS: AZTREONAM 2 GM in SODIUM CHLORIDE 0.9% IV 100 ML 200 ML IVPB (06:05)
[2022-10-22] MEDS: DEXTROSE 50% 25 GM/50 ML SYRINGE IV PUSH (08:06)
[2022-10-22] MEDS: SODIUM BICARBONATE 8.4% 50 MEQ/50 ML SYRINGE IV PUSH (08:07)
[2022-10-22] MEDS: INSULIN HUMAN REGULAR (*BKC) 100 UNITS/ML 10 UNITS IV PUSH (08:07)
[2022-10-22] MEDS: CALCIUM GLUC 2,000 MG/NS 100ML 2,000 MG/100 ML BAG 100 MG IVPB (08:11)
[2022-10-22] MEDS: SODIUM CHLORIDE 1 GM TABLET FEED TUBE (08:11)
[2022-10-22] MEDS: ALBUTEROL SULFATE NEB 2.5 MG/3 ML INH 15 MG INHALATION (08:12)
[2022-10-22] MEDS: BUDESONIDE RESPULE NEB 0.5 MG/2 ML AMP INHALATION (08:19)
[2022-10-22] MEDS: metroNIDAZOLE 500 MG/ISO 100ML 500 MG/100 ML BAG 100 MG IVPB (08:19)
[2022-10-22] MEDS: PANTOPRAZOLE SODIUM IV 40 MG VIAL IV PUSH (08:35)
[2022-10-22] MEDS: SODIUM ZIRCONIUM CYCLOSILICATE 10 GM POWD.PACK PO (08:37)
--- NOTE | 2022-10-22 09:03 | WPDINTPN ---
Progress Note: A&P Assessment and Plan (1) Shock: Code(s): R57.9 - Shock, unspecified Status: Acute Assessment and Plan: RESOLVED Patient with shock most likely related to amlodipine overdose -patient has been adequately fluid-resuscitated -vasopressin and epinephrine infusions have been discontinue -OFF Levophed -poison control is on the case, -Status post high-dose insulin and dextrose therapy significant improvement in blood pressures and weaning off vasopressors -remains on aztreonam, vancomycin (10/19) -levofloxacin was discontinued -Flagyl added on (10/20) for possible aspiration pneumonia -initial lactic acid was elevated but has normalized (2) Medication overdose: Code(s): T50.901A - Poisoning by unspecified drugs, medicaments and biological substances, accidental (unintentional), initial encounter Status: Acute Assessment and Plan: Likely overdose with amlodipine and Lyrica -amlodipine overdose caused severe hypotension refractory to IV fluids and vasopressors -10/19: Patient was started on high-dose insulin and dextrose with significant improvement in blood pressures and weaning of vasopressors -now status post high-dose insulin dextrose therapy (3) Suicidal behavior: Code(s): R45.89 - Other symptoms and signs involving emotional state Status: Acute Assessment and Plan: According the patient's daughter in-law, likely suicide behavior as she took unknown amount of amlodipine and Lyrica as the [id number] found the bottles around the patient at home -continue suicide precautions -bedside sitter in room -will have care coordination and crisis management evaluate the patient once she is medically stable for placement in a psychiatric unit -the son and [id number] found a suicide note in patient's room (4) Encephalopathy: Code(s): G93.40 - Encephalopathy, unspecified Status: Acute Assessment and Plan: Encephalopathy can be multifactorial most likely medication overdose with amlodipine and Lyrica, electrolyte imbalance, hypotension, acute kidney injury, uremia -patient has been adequately fluid-resuscitated, -ammonia levels within normal limit -treat underlying cause -continue to monitor (5) DM2 (diabetes mellitus, type 2): Qualifiers: Diabetes mellitus terminal operations manager insulin use: unspecified terminal operations manager insulin use status Diabetes mellitus complication status: without complication Qualified Code(s): E11.9 - Type 2 diabetes mellitus without complications Code(s): E11.9 - Type 2 diabetes mellitus without complications Status: Acute Assessment and Plan: Continue Accu-Cheks and sliding scale insulin - (6) COPD (chronic obstructive pulmonary disease): Qualifiers: COPD type: COPD with acute exacerbation Qualified Code(s): J44.1 - Chronic obstructive pulmonary disease with (acute) exacerbation Code(s): J44.9 - Chronic obstructive pulmonary disease, unspecified Status: Acute Assessment and Plan: Patient currently on Vapotherm, 45 L flow rate and 50% FiO2 -wheezing has improved, will continue Solu-Medrol -continue bronchodilators -continue budesonide -wean FiO2 to maintain O2 sats > 92% (7) Adjustment reaction with anxiety and depression: Code(s): F43.23 - Adjustment disorder with mixed anxiety and depressed mood Status: Acute Assessment and Plan: Patient with history of anxiety and depression -patient has been depressed because she did lose her dog on the day of admission (8) Acute kidney injury: Code(s): N17.9 - Acute kidney failure, unspecified Status: Acute Assessment and Plan: Patient with acute kidney injury likely related to severe shock secondary to hypotension -patient has been adequately fluid-resuscitated -pressor requirements have decreased significantly, patient is off epinephrine and vasopressin, remains on low-dose Levophed -urine sod
[2022-10-22 09:07] LABS: Glucose Point of Care 241 mg/dl (65-105)
[2022-10-22 09:21] LABS: Anion Gap 10 mmol/L (8-16); Blood Urea Nitrogen 86 mg/dL (7-17); Calcium 6.8 mg/dL (8.4-10.2); Carbon Dioxide 22 mmol/L (22-30); Chloride 95 mmol/L (98-107); Glucose 160 mg/dL (65-110); Potassium 4.4 mmol/L (3.4-5.0); Sodium 127 mmol/L (137-145)
[2022-10-22 09:27] LABS: Estimated CRCL calculation 14 ml/min; Estimated Glomerular Filt Rate 13
--- NOTE | 2022-10-22 10:20 | PM.PNNEP ---
Progress Note: A&P Assessment and Plan (1) Acute kidney injury: Code(s): N17.9 - Acute kidney failure, unspecified Status: Acute Assessment and Plan: continues to deteriorate multifactorial: hemodynamic instability hypotension shock contrast exposure (with CTA of chest on admission) sepsis (?) possible prerenal factors s/p aggressive IVF resuscitation evaluation to date: urine electrolytes prerenal urine eosinophils negative CPK normal renal ultrasound normal continue efforts to maintain hemodynamics she remains at risk for needing renal replacement therapy/dialysis patient's son feels she wound not want dialysis not opposed to trial of IV diuretics continue to monitor renal function, electrolytes and urine output (2) Shock: Code(s): R57.9 - Shock, unspecified Status: Acute Assessment and Plan: presumably secondary to amlodipine overdose s/p adequate fluid resuscitation pressors are weaned off (was on 3 pressors on admission) stress dose steroids poison control recommendations noted: status post high-dose insulin and dextrose therapy significant improvement in blood pressures and weaning off vasopressors lactic acid has normalized follow culture data on empiric antibiotics (3) Hyponatremia: Code(s): E87.1 - Hypo-osmolality and hyponatremia Status: Acute Assessment and Plan: most likely due to D20W IVFs (off currently) salt tabs per tube added would also switch all IVPBs/IV medications to use normal saline as carrier fluid follow trend of sodium levels (4) Medication overdose: Code(s): T50.901A - Poisoning by unspecified drugs, medicaments and biological substances, accidental (unintentional), initial encounter Status: Acute Assessment and Plan: though to be an overdose with amlodipine and Lyrica amlodipine overdose caused severe hypotension refractory to IV fluids and vasopressors however, with use of high-dose insulin and dextrose, noted significant improvement in blood pressures and weaning of vasopressors (5) Encephalopathy: Code(s): G93.40 - Encephalopathy, unspecified Status: Acute Assessment and Plan: also likely secondary to medication overdose with amlodipine and Lyrica ongoing deterioration noted continue supportive care (6) COPD (chronic obstructive pulmonary disease): Qualifiers: COPD type: COPD with acute exacerbation Qualified Code(s): J44.1 - Chronic obstructive pulmonary disease with (acute) exacerbation Code(s): J44.9 - Chronic obstructive pulmonary disease, unspecified Status: Acute Assessment and Plan: supplemental oxygen therapy as noted on steroids already nebulizer treatments and bronchodilators follow respiratory status closely known code status of DNR/DNI (7) Suicidal behavior: Code(s): R45.89 - Other symptoms and signs involving emotional state Status: Acute Assessment and Plan: according to family, suspect suicide behavior for medication overdose she also has a history of anxiety and depression she has been more depressed recently due to the of her dog suicide precautions sitter in room may need psychiatric unit placement once medically stable (8) DM2 (diabetes mellitus, type 2): Qualifiers: 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 Famil
--- NOTE | 2022-10-22 10:20 | P.PNNP_ITS ---
Progress Note: A&P Assessment and Plan (1) Acute kidney injury: Code(s): N17.9 - Acute kidney failure, unspecified Status: Acute Assessment and Plan: * continues to deteriorate * multifactorial: * hemodynamic instability * hypotension * shock * contrast exposure (with CTA of chest on admission) * sepsis (?) * possible prerenal factors * s/p aggressive IVF resuscitation * evaluation to date: * urine electrolytes prerenal * urine eosinophils negative * CPK normal * renal ultrasound normal * continue efforts to maintain hemodynamics * she remains at risk for needing renal replacement therapy/dialysis * patient's son feels she wound not want dialysis * not opposed to trial of IV diuretics * continue to monitor renal function, electrolytes and urine output (2) Shock: Code(s): R57.9 - Shock, unspecified Status: Acute Assessment and Plan: * presumably secondary to amlodipine overdose * s/p adequate fluid resuscitation * pressors are weaned off (was on 3 pressors on admission) * stress dose steroids * poison control recommendations noted: * status post high-dose insulin and dextrose therapy significant improvement in blood pressures and weaning off vasopressors * lactic acid has normalized * follow culture data * on empiric antibiotics (3) Hyponatremia: Code(s): E87.1 - Hypo-osmolality and hyponatremia Status: Acute Assessment and Plan: * most likely due to D20W IVFs (off currently) * salt tabs per tube added * would also switch all IVPBs/IV medications to use normal saline as carrier fluid * follow trend of sodium levels (4) Medication overdose: Code(s): T50.901A - Poisoning by unspecified drugs, medicaments and biological substances, accidental (unintentional), initial encounter Status: Acute Assessment and Plan: * though to be an overdose with amlodipine and Lyrica * amlodipine overdose caused severe hypotension refractory to IV fluids and v asopressors * however, with use of high-dose insulin and dextrose, noted significant improvement in blood pressures and weaning of vasopressors (5) Encephalopathy: Code(s): G93.40 - Encephalopathy, unspecified Status: Acute Assessment and Plan: * also likely secondary to medication overdose with amlodipine and Lyrica * ongoing deterioration noted * continue supportive care (6) COPD (chronic obstructive pulmonary disease): Qualifiers: COPD type: COPD with acute exacerbation Qualified Code(s): J44.1 - Chronic obstructive pulmonary disease with (acute) exacerbation Code(s): J44.9 - Chronic obstructive pulmonary disease, unspecified Status: Acute Assessment and Plan: * supplemental oxygen therapy as noted * on steroids already * nebulizer treatments and bronchodilators * follow respiratory status closely * known code status of DNR/DNI (7) Suicidal behavior: Code(s): R45.89 - Other symptoms and signs involving emotional state Status: Acute Assessment and Plan: * according to family, suspect suicide behavior for medication overdose * she also has a history of anxiety and depression * she has been more depressed recently due to the of her dog * suicide precautions * sitter in room * may need psychiatric unit placement once medically stable (8) DM2 (diabetes mellitus, type 2): Qualifiers: Diabetes mellitus intermediate insulin use: unspecified laborer marine terminal insulin use status
--- NOTE | 2022-10-22 11:11 | PCFNICU ---
ICU Rounding Note: Pt current nutrition is Nepro at 20 ml/hr. Nutrition recommendation: goal rate at 40 ml/hr. Last recorded weight is 80.6 kg. Bowel Motility:+BM reported 10/21 Labs Reviewed:Glu 142, BUN 83, Cr 3.5,Na 124, Alb 3.0 Meds Noted:Protonix, Vancomycin,Flagyl Skin: WNL Additional Notes: Patient current with tube feedings of Nepro at 20 ml/hr and tolerating per nursing with 30 ml q 4 hour flushes. Discussions regarding hospice care during ICU rounds. Will monitor in ICU rounds and reassessing every Saturday and Saturday..
[2022-10-22 12:26] LABS: Glucose Point of Care 149 mg/dl (65-105)
[2022-10-22 14:56] LABS: Ionized Calcium 4.1 mg/dL (4.7-5.5)
--- NOTE | 2022-10-22 17:01 | PM.IMPN ---
Progress Note: A&P Assessment and Plan (1) Sepsis: Code(s): A41.9 - Sepsis, unspecified organism Status: Acute Assessment and Plan: Suspected with hypotension and lactic acidosis She however has no leukocytosis. Remains empirically on Azactam, Levaquin, and vancomycin. Blood cultures are pending. Patient required vasopressors. She does have a central line that was placed in the emergency room. Off of vasopressor now. Chest x-ray with pneumonia likely aspiration related added Flagyl for anaerobic coverage. Chest x-ray with congestive changes. Lasix ordered as per actuarial intern Renal failure continues to worsen Nephrology on board (2) DM2 (diabetes mellitus, type 2): Qualifiers: Diabetes mellitus complication status: without complication Diabetes mellitus senior living insulin use: unspecified remote computer terminal operator insulin use status Qualified Code(s): E11.9 - Type 2 diabetes mellitus without complications Code(s): E11.9 - Type 2 diabetes mellitus without complications Status: Acute Assessment and Plan: Accu-Cheks every 6 hours with sliding scale insulin On insulin drip along with dextrose drip for treatment of medication overdose Hypoglycemic 10/20/2022: Insulin drip has been off Continue to monitor Accu-Cheks as ordered Hypoglycemia likely related to underlying sepsis/insulin (3) COPD (chronic obstructive pulmonary disease): Qualifiers: COPD type: COPD with acute exacerbation Qualified Code(s): J44.1 - Chronic obstructive pulmonary disease with (acute) exacerbation Code(s): J44.9 - Chronic obstructive pulmonary disease, unspecified Status: Acute Assessment and Plan: DuoNebs have been ordered With active wheezing possible exacerbation related to recent aspiration episode steroid has been started Continue bronchodilators (4) Anemia: Qualifiers: Anemia type: unspecified type Qualified Code(s): D64.9 - Anemia, unspecified Code(s): D64.9 - Anemia, unspecified Status: Acute Assessment and Plan: her H&H is 9.9 and 33.4. No previous labs for comparison coffee-ground emesis /NG output noted Occult blood testing came back positive Monitor H&H and transfuse as needed to keep hemoglobin more than 7 Remains on PPI b.i.d. Supportive treatment as ordered H&H remained stable (5) Shock: Code(s): R57.9 - Shock, unspecified Status: Acute Assessment and Plan: Likely due to medication overdose Improved with insulin dextrose drip which has now been turned off due to hypoglycemia Off vasopressors now (6) Acute kidney injury: Code(s): N17.9 - Acute kidney failure, unspecified Status: Acute Assessment and Plan: Creatinine 1.5 on admission creatinine was 1 Likely due to hypotension Continue to monitor renal function and urine output CK level normal Creatinine continues to worsen Nephrology has been consulted renal ultrasound is negative for hydronephrosis Urine output is declined. Avoid nephrotoxic drugs Maintain hemodynamics. (7) Medication overdose: Code(s): T50.901A - Poisoning by unspecified drugs, medicaments and biological substances, accidental (unintentional), initial encounter Status: Acute Assessment and Plan: Likely with amlodipine and Lyrica (8) Suicidal behavior: Code(s): R45.89 - Other symptoms and signs involving emotional state Status: Acute Assessment and Plan: History of anxiety and depression (9) Encephalopathy: Code(s): G93.40 - Encephalopathy, unspecified Status: Acute Assessment and Plan: Multifactorial Continue to monitor Ammonia is normal Urine drug screen is negative Plan Family moved to comfort care due to continual decline Subjective Date/time seen: 10/22/22 17:01 Interval history: Patient remains somnolent afebrile. Unresponsive. Events reviewed. Family has opted for withdrawal o
[2022-10-22] MEDS: MORPHINE SULFATE INJ (*CRX) 10 MG/ML AMP 5 MG IV PUSH (19:04)
[2022-10-22] MEDS: LORazepam INJ (*CRX) 2 MG/ML VIAL IV PUSH (19:04)
--- NOTE | 2022-10-23 02:58 | PC.NURSE ---
2134 patient noted to be in PEA 2139 Patient in asystole - pronounced via Marcos Manuel RN. Son at bedside. Emotional support given.
--- NOTE | 2022-10-23 07:36 | PM.DDS ---
Discharge Summary Date and Time Date of : 10/22/22 Time of : 21:40 Provider Pronounced By: rafi hansen Probable Cause of Probable Cause of : septic shock, pneumonia, acute kidney injury Summary Hospital Course: # Septic shock: Suspected sepsis with hypotension and lactic acidosis She however has no leukocytosis. Remains empirically on Azactam, Levaquin, and vancomycin. cxr with pneumonia likely aspiration related Patient required vasopressors in the beginning Lasix ordered as per operations research group manager Renal failure continues to worsen [facility] board [facility] . # DM2 (diabetes mellitus, type 2): Accu-Cheks every 6 hours with sliding scale insulin On insulin drip along with dextrose drip for treatment of medication overdose Hypoglycemic 10/20/2022: Insulin drip has been off Continue to monitor Accu-Cheks as ordered Hypoglycemia likely related to underlying sepsis/insulin # COPD (chronic obstructive pulmonary disease): ? DuoNebs have been ordered With active wheezing possible exacerbation related to recent aspiration episode ?steroid has been started Continue bronchodilators # Anemia: her H&H is 9.9 and 33.4. No previous labs for comparison ? coffee-ground emesis /NG output noted Occult blood testing came back positive Monitor H&H and transfuse as needed to keep hemoglobin more than 7 Remains on PPI b.i.d. Supportive treatment as ordered H&H remained stable # Shock: Likely due to medication overdose Improved with insulin dextrose drip which has now been turned off due to hypoglycemia Off? vasopressors now # Acute kidney injury: Creatinine 1.5 on admission creatinine was 1 Likely due to hypotension Continue to monitor renal function and urine output CK level normal Creatinine continues to worsen Nephrology has been consulted renal ultrasound is negative for hydronephrosis Urine output is declined. Avoid nephrotoxic drugs Maintain hemodynamics # Medication overdose: Likely with amlodipine and Lyrica # Suicidal behavior: History of anxiety and depression # Encephalopathy: Multifactorial Continue to monitor Ammonia is normal Urine drug screen is negative likely due to septic shock Additional Data Confirmation of as documented by pronouncing clinician: Pupillary Reflex, Palpable Pulses, Response to Stimuli, Heart Tones and Breath Sounds Name of Provider Notified: ernie Time Provider Notified: 21:50 Provider Requests Autopsy: No Family Requests Autopsy: No Billet Worker Notified: Yes Date [facility] Notified of : 10/22/22 Time [facility] Notified of : 23:14
[2022-10-26 14:16] LABS: Chloride Rand Ur <20 mmol/L (32-290); Creatinine Random Urine 121 mg/dL (20-275)
== END 2022-10-22 21:40 | disposition expired | DRG 871 ==
LOC: ANHED 18:37 → ANHICU 21:54
PROVIDERS: Internal Medicine; Nurse Practitioner; Admitting Provider Student in an Organized Health Care Education/Training Program; Emergency Provider Emergency Medicine; PCP Family Medicine; Visit Provider Internal Medicine
DX: A41.9 Sepsis, unspecified organism (principal); G92.8 Other toxic encephalopathy; G93.41 Metabolic encephalopathy; J69.0 Pneumonitis due to inhalation of food and vomit; R65.21 Severe sepsis with septic shock; J44.1 Chronic obstructive pulmonary disease with (acute) exacerbation; N17.9 Acute kidney failure, unspecified; R19.5 Other fecal abnormalities; D64.9 Anemia, unspecified; T46.1X1A Poisoning by calcium-channel blockers, accidental (unintentional), initial encounter; T42.6X1A Poisoning by other antiepileptic and sedative-hypnotic drugs, accidental (unintentional), initial encounter; E11.649 Type 2 diabetes mellitus with hypoglycemia without coma; Z86.73 Personal history of transient ischemic attack (TIA), and cerebral infarction without residual deficits; Z66 Do not resuscitate; R45.89 Other symptoms and signs involving emotional state; F17.210 Nicotine dependence, cigarettes, uncomplicated; F41.9 Anxiety disorder, unspecified; F32.A Depression, unspecified; Z79.899 Other long term (current) drug therapy; Z88.0 Allergy status to penicillin; Z88.1 Allergy status to other antibiotic agents
CPT/HCPCS: 36415; 36556; 36600; 70450; 71045; 71275; 72125; 76775; 80048; 80053; 80202; 80307; 81001; 82140; 82274; 82330; 82436; 82550; 82565; 82570; 82805; 82948; 83036; 83605; 83690; 83735; 84100; 84133; 84300; 84443; 85014; 85018; 85025; 85610; 85730; 85999; 86140; 87040; 87081; 93005; 93306; 94640; 96361; 96365; 99291; A9270; C1751; C9113; J0171; J0613; J1650; J1720; J1815; J1940; J1956; J2060; J2270; J2930; J3370; J3475; J3480; J7030; J7060; J7070; L0140; Q9967